=== PATIENT | female | born 1940 | race Hispanic/Latino ===

== ENCOUNTER → 2018-02-13 | Outpatient (CLI) | payer OTHER ==
--- NOTE | 2018-02-13 16:38 | Diagnostic Imaging Report ---
PROCEDURE: CT CHEST WITHOUT CONTRAST CT scan of the chest WITHOUT intravenous contrast, using standard protocol. TECHNIQUE: The chest was scanned utilizing a multidetector helical scanner from the apex to the level of the adrenal glands. No IV contrast was administered because of nodule protocol. Coronal and sagittal multiplanar reformations were obtained. DLP: 347.2 mGy-cm COMPARISON: Chest radiograph 08/20/2017 INDICATIONS: NODULE FINDINGS: Lines/tubes: None. Lungs and Airways: Upper lobe predominant consolidations in a peribronchovascular distribution. There are areas of varicoid bronchiectasis (series 3 image 32 in the left upper lobe). Additional scattered peripheral ground glass opacities are noted. Pleura: The pleural spaces are clear. Heart and mediastinum: The thyroid gland is normal. No significant mediastinal, hilar or axillary lymphadenopathy is seen. Numerous but subcentimeter mediastinal appearance, nonspecific. The heart and pericardium are within normal limits. Ascending aortic ectasia measuring 4 cm. Soft tissues: Normal. Abdomen: Mild intrahepatic and extrahepatic biliary ductal dilatation. The common bile duct measures 1.1 cm. Gallbladder is outside the scanned abdomen. No right upper quadrant surgical clips are noted on chest radiograph 08/20/2017. Prominent wolf hepatis and gastrohepatic lymph nodes measure up to 1.1 cm. A 0.6 cm nodule is noted anterior to the left hepatic lobe (series 2 image 87). Bones: Multilevel degenerative changes of the spine. IMPRESSION: 1. Bilateral consolidations as detailed above. Based on patient's history, findings may reflect rheumatoid arthritis associated interstitial lung disease with a pattern which includes nonspecific interstitial pneumonia and cryptogenic organizing pneumonia. 2. Numerous but predominantly subcentimeter lymph nodes in the chest and upper abdomen are nonspecific but may also be related to RA. Reactive lymphadenopathy or a lymphoproliferative process are also in the differential. 3. Mild intrahepatic and extrahepatic biliary ductal dilatation. Consider correlation with right upper quadrant ultrasound. Dictated by: Yon Olguin M.D. on 02/13/2018 at 16:38 Electronically approved by: Yon Olguin M.D. on 02/13/2018 at 16:38
== END ==
LOC: CT 13:34
PROVIDERS: ATTEND Internal Medicine Pulmonary Disease
DX: R91.8 Other nonspecific abnormal finding of lung field (principal)
CPT/HCPCS: 71250

== ENCOUNTER 2018-05-05 12:15 | Emergency (ER) | payer OTHER ==
[~2018-05-05] VITALS: Ht 157.5 cm; Wt 52.6 kg
--- OUTSIDE RECORDS SUMMARY | 2018-05-05 12:18 | XMS REPORT | Clinical Summary ---
Author Author [facility] Address Unknown Phone Unavailable Care Team Providers Care Copier And Printer Field Technician Name Role Phone Merlene Roberto MD PCP Allergies Active Allergy Reactions Severity Noted Date Comments Penicillins Rash Low 03/23/2018 Current Medications Prescription Sig. Disp. Refills Start End Date Status Date albuterol (ACCUNEB) 2.5 Take 2.5 mg by Active mg /3 mL (0.083 %) nebulization 3 (three) nebulizer solution times a day. diltiazem XR (DILT-XR) Take 240 mg by mouth Active 240 MG 24 hr capsule daily. DULoxetine (CYMBALTA) 60 Take 60 mg by mouth Active MG capsule daily. gabapentin (NEURONTIN) Take 300 mg by mouth 3 Active 300 mg capsule (three) times a day. levothyroxine (SYNTHROID, Take 75 mcg by mouth Active LEVOXYL) 75 mcg tablet every morning. lidocaine (LIDODERM) 5 % Place 1 patch on the skin Active daily. Remove & Discard patch within 12 hours or as directed by LISINOPRIL-HCTZ 20-12.5 1 tablet daily. Active MG COMBO DOSE LORAZepam (ATIVAN) 2 MG Take 2 mg by mouth every Active tablet 8 (eight) hours as needed for anxiety. metFORMIN (GLUCOPHAGE) Take 500 mg by mouth 2 Active 500 mg tablet (two) times a day with meals. lancets (MICROLET LANCET) Active misc mirtazapine (REMERON Take 30 mg by mouth Active TAMEKA-TAB) 30 MG nightly. disintegrating tablet simvastatin (ZOCOR) 10 MG Take 10 mg by mouth Active tablet nightly. oxyCODone (ROXICODONE) 10 Take 5 mg by mouth 2 Active MG tablet (two) times a day. diclofenac (VOLTAREN) 1 % Apply topically 4 (four) 03/30/20 Discontin gel times a day. 18 ued famotidine (PEPCID) 40 MG Take 40 mg by mouth 03/23/20 Discontin tablet daily. 18 ued HYDROcodone-acetaminophen Take 1 tablet by mouth 03/25/20 Discontin (NORCO) 10-325 mg per every 6 (six) hours as 18 ued tablet needed for moderate pain. meloxicam (MOBIC) 7.5 mg Take 7.5 mg by mouth 03/30/20 Discontin tablet daily. 18 ued methotrexate 2.5 MG Take 2.5 mg by mouth 03/30/20 Discontin tablet every 12 (twelve) hours 18 ued for 3 (three) doses only each week. metoclopramide (REGLAN) 5 Take 5 mg by mouth 4 03/23/20 Discontin MG tablet (four) times a day. 18 ued polyethylene glycol Take 17 g by mouth daily. 03/30/20 Discontin (MIRALAX) 17 gram packet 18 ued promethazine (PHENERGAN) Take 25 mg by mouth every 03/30/20 Discontin 25 MG tablet 6 (six) hours as needed 18 ued for nausea or vomiting. aspirin 325 MG tablet Take 325 mg by mouth as 03/30/20 Discontin needed (prn headaches). 18 ued bisacodyl (DULCOLAX) 5 mg Take 5 mg by mouth daily 03/30/20 Discontin EC tablet as needed for 18 ued constipation. lisinopril Take 1 tablet (20 mg 30 tablet 0 03/31/20 04/30/20 (PRINIVIL,ZESTRIL) 20 mg total) by mouth daily for 18 18 tablet 30 days. enoxaparin (LOVENOX) 30 Inject 0.3 mL (30 mg 18 mL 0 03/30/20 mg/0.3 mL syringe total) under the skin 18 18 every 12 (twelve) hours for 30 days. oxyCODone-acetaminophen Take 1 tablet by mouth 03/30/20 04/29/20 (PERCOCET) 10-325 mg per every 6 (six) hours as 18 18 tablet needed for severe pain for up to 30 days. Max Daily Amount: 4 tablets nicotine (NICODERM CQ) 14 Place 1 patch on the skin 30 patch 0 04/30/20 mg/24 hr daily for 30 days. 18 18 hydroCHLOROthiazide Take 1 capsule (12.5 mg 30 capsule 0 03/31/20 (MICROZIDE) 12.5 mg total) by mouth daily for 18 18 capsule 30 days. Active Problems Problem Noted Date Osteoarthritis of right knee 03/25/2018 Encounters Date Type Specialty Care Team Description 03/25/2018 Hospital General Surgery Caleb Olguin MD - Encounter 03/30/2018 03/25/2018 Procedure Pass General Surgery 03/25/2018 Surgery General Surgery Caleb Olguin MD ARTHROPLASTY, KNEE, TOTAL RIGHT 03/24/2018 Anesthesia General Surgery Raquel Espino MD Event 03/23/2018 Hospital Radiology Caleb Olguin MD Encounter 03/23/2018 Pre-Admit Pre-Admission Testing Caleb Olguin MD Preop testing (Primary Testing Dx) Appointment 02/16/2018 Pre-Admit Pre-Admission Testing Caleb Olguin MD Preop testing (Primary Testing Dx) Appointment 02/04/2018 Procedure Pass General Surgery 01/19/2018 Hospital Radiology Caleb Olguin MD Encounter 01/19/2018 Pre-Admit Pre-Admission Testing Claeb Olguin MD Preop testing (Primary Testing Dx) Appointment after 05/04/2017 Family History Medical History Relation Name Comments Diabetes Mother Cancer Sister Relation Name Status Comments Father Mother Sister Social History Tobacco Use Types Packs/Day Years Used Date Current Every Day Smoker Cigarettes 0.25 25 Smokeless Tobacco: Never Used Tobacco Cessation: Ready to Quit: No Comments: stopped smoking 5 days prior to surgery Alcohol Use Drinks/Week oz/Week Comments No Sex Assigned at Date Recorded Not on file Last Filed Vital Signs Vital Sign Reading Time Taken Blood Pressure 157/79 03/30/2018 11:55 AM CDT Pulse 102 03/30/2018 11:55 AM CDT Temperature 36.7 C (98.1 F) 03/30/2018 11:55 AM CDT Respiratory Rate 18 03/30/2018 11:55 AM CDT Oxygen Saturation 93% 03/30/2018 11:55 AM CDT Inhaled Oxygen - - Concentration Weight 58.9 kg (129 lb 14.4 oz) 03/25/2018 6:19 AM CDT Height 154.9 cm (5' 1") 03/25/2018 6:19 AM CDT Body Mass Index 24.54 03/25/2018 6:19 AM CDT Plan of Treatment Health Maintenance Due Date Last Done Comments SHINGRIX VACCINE (#1) 1991 ZOSTER VACCINE 2001 PNEUMOCOCCAL 2006 POLYSACCHARIDE VACCINE AGE 65 AND OVER PNEUMOCOCCAL-13 2006 INFLUENZA VACCINE 06/24/2018 08/24/2017, 08/24/2016 Implants Implanted Type Area Brand Strategist Device Expiration Model / Identifier Date Serial / Lot Tissue Matrix Placental Liquid Human Right: 12/09/2022 AM200 / Cryomatrix Size 2.0cc - Tissue Knee [id number] - [id number] Implants -143 / Implanted: Qty: 1 on 03/25/2018 by [id number] Caleb Olguin MD -143 Evolutionmp Femoral Cs/Cr Non-Por IPM Right: MICROPORT 04/29/2025 [id number] / Size 3 Primary Right - [id number] IMPLANT Knee ORTHOPEDICS / Implanted: Qty: 1 on 03/25/2018 by DEVICES [id number] Caleb Olguin MD Evolutionmp Tibial Keeled Nonpor IPM Right: MICROPORT 11/19/2025 [id number] / Size 4 Standard Right - [id number] IMPLANT Knee ORTHOPEDICS / Implanted: Qty: 1 on 03/25/2018 by DEVICES [id number] Caleb Olguin MD Evolution Mp Cs Insert Size 4 IPM Right: MICROPORT 06/16/2025 [id number] / Standard 10mm Right - [id number] IMPLANT Knee ORTHOPEDICS / Implanted: Qty: 1 on 03/25/2018 by DEVICES [id number] Caleb Olguin MD Patella Onlay 3peg 32mm Pe Advance Knee Joint Right: MICROPORT 2024 [id number] / - [id number] Implants Knee / Implanted: Qty: 1 on 03/25/2018 by [id number] Caleb Olguin MD Cement Bone Gm Hiviscocty 40gr Surgical Right: DEPUY 07/24/2019 [id number] Smartmix - [id number] Bone Knee ORTHO-KNEES 500 / Implanted: Qty: 2 on 03/25/2018 by Cement / Caleb Olguin MD [id number] Procedures Procedure Name Priority Date/Time Associated Diagnosis Comments CO AN PERIPHERAL BLOCK Routine 03/25/2018 POST-OP PAIN 11:29 AM CDT Procedure Note - Raquel Espino MD - 03/25/2018 11:29 AM CDT Peripheral Block Performed by: RAQUEL ESPINO Authorized by: RAQUEL ESPINO Patient Location: Pre-op Start Time: 03/25/2018 7:30 AM End Time: 03/25/2018 7:45 AM Reason for Block: at surgeon's request, post-op pain management Staff: Anesthesio logist: RAQUEL ESPINO Preprocedu re: patient identified , IV checked, site and side verified, risks and benefits discussed, procedure verified, surgical consent complete, patient position confirmed, monitors and equipment checked, pre-op evaluation complete and site marked Time Out Performed: 03/25/2018 11:29 AM Peripheral Nerve Block: Patient Position: Supine Prep: DuraPrep Monitoring : Blood pressure monitoring , continuous pulse oximetry, CO2 and heart rate Block Type: Femoral Laterality : Right Injection Technique: Single injection Procedures : ultrasound guided Ultrasound documentat ion: Not saved Local Infiltrati on (See MAR for details): Lidocaine Loss of Twitch: 0.4 mA Needle: Needle Type: SonoPlex Needle Gauge: 22 G Needle Length: 2 in Assessment : Injection Assessment : Visualized needle/loc al anesthetic surroundin g nerve, visualized pertinent vascular structures and nerves, needle tip visualized at all times during injection of medication , intermitte nt aspiration during local anesthetic administra tion and no symptoms of intraneura l/intraven ous injection Paresthesi a Pain: None Heart Rate Change: No Slow Fractionat ed Injection: No Block outcome: No apparent complicati ons Notes: Ropivacain e 0.5% 20 cc Lidocaine 1.5% with epi 20 cc CO AN ELECTIVE Routine 03/25/2018 ENDOTRACHEAL AIRWAY 8:18 AM CDT Procedure Note - Raquel Espino MD - 03/25/2018 8:18 AM CDT Airway Performed by: RAQUEL ESPINO Authorized by: RAQUEL ESPINO Location: PACU Urgency: Elective Difficult Airway: No Anesthesio logist: RAQUEL ESPINO Preoxygena kaitlynn with 100% O2: Yes C-spine Precaution s Maintained Throughout : Yes Mask Ventilatio n: Easy mask Final Airway Type: Endotrache al airway Final Endotrache al Airway: ETT Cuffed: Yes Technique Used: Direct laryngosco py Devices/Me thods Used in Placement: Intubatin g stylet Insertion Site: Oral Blade Type: Stanton Laryngosco pe Blade/Vide olaryngosc ope Blade Size: 2 ETT Size (mm): 6.5 Cuff at minimum occlusion pressure: Yes Measured from: Gums ETT to Gums (cm): 20 Placement Verified by: CO2 detection Laryngosc opic view: Grade I - full view of glottis Rapid Sequence Induction (RSI): No Modified RSI: No Number of Attempts at Approach: 2 Unable to pass 7.0 Ett switched to 6.5 without complicati ons. ARTHROPLASTY, KNEE, TOTAL 03/25/2018 RIGHT KNEE OSTEOARTHRITIS RIGHT 7:43 AM CDT Special Needs NEEDS MICROPORTD AVID WITH MICROPORT NOTIFIED OF CASE SCHEDULED FOR 03/25 AT 0715 after 05/04/2017 Results * POC glucose (03/30/2018 11:57 AM) Only the most recent of 22 results within the time period is included. Component Value Ref Range POC glucose 94 65 - 99 mg/dL Comment: Meter ID: [id number] Roving Can Tender: Arjun Alcaraz Specimen Performing Laboratory [facility] DEPARTMENT OF PATHOLOGY AND [facility] MEDICINE [address] [place] [address] [place] [id number] * Hemoglobin & hematocrit (03/29/2018 5:49 AM) Only the most recent of 4 results within the time period is included. Component Value Ref Range HGB 9.1 (L) 12.0 - 16.0 g/dL HCT 28.8 (L) 37.0 - 47.0 % Specimen Performing Laboratory Blood [facility] DEPARTMENT OF PATHOLOGY AND [facility] MEDICINE [address] [place] [address] [place] [address] * Transfuse RBC (03/26/2018 7:25 PM) Only the most recent of 2 results within the time period is included. * Prepare RBC, 2 Units (03/26/2018 9:11 AM) Component Value Ref Range Product name Red Blood Cells -1, Leukored Unit number [id number] Product code [id number] Dispense status Transfused Blood expiration date Blood type code 7300 Blood type B POSITIVE Product name Red Blood Cells -1, Leukored Unit number [id number] Product code [id number] Dispense status Transfused Blood expiration date 532087153116 Blood type code 7300 Blood type B POSITIVE Specimen Performing Laboratory [facility] DEPARTMENT OF PATHOLOGY AND GENOMIC MEDICINE [id number] [place] [address] [place] [address] * Type and screen (03/26/2018 9:11 AM) Only the most recent of 2 results within the time period is included. Component Value Ref Range ABO grouping B Rh type POS Antibody screen NEG Specimen Performing Laboratory Blood [facility] DEPARTMENT OF PATHOLOGY AND GENOMIC MEDICINE [id number] [place] [address] [place] [address] * XR Knee 1 Or 2 Vw Right (03/25/2018 2:28 PM) Specimen Performing Laboratory [facility] [address] [place] [address] Narrative EXAMINATION:XR KNEE 1 OR 2 VW RIGHT CLINICAL HISTORY:total knee arthoplasty COMPARISON:None. IMPRESSION: There is a newly placed right knee prosthesis with normal alignment and no fracture.Surgical drains are in place. [id number] Procedure Note Hm Interface, Radiology Results Incoming - 03/25/2018 2:45 PM CDT EXAMINATION: XR KNEE 1 OR 2 VW RIGHT CLINICAL HISTORY: total knee arthoplasty COMPARISON: None. IMPRESSION: There is a newly placed right knee prosthesis with normal alignment and no fracture. Surgical drains are in place. [facility]-[id number] * Surgical pathology request (03/25/2018 10:00 AM) Component Value Ref Range Surgical pathology report See link below for PDF Lab Report Result status This is Final Report to [id number] Specimen Performing Laboratory [facility] DEPARTMENT OF PATHOLOGY AND GENOMIC MEDICINE [address] [place] [address] [place] [address] * XR Chest 2 Vw (03/23/2018 3:16 PM) Only the most recent of 2 results within the time period is included. Specimen Performing Laboratory [facility] [address] [place] [address] Narrative EXAMINATION:XR CHEST 2 VW CLINICAL HISTORY:Z01.818 Encounter for other preprocedural examination, preop COMPARISON:None. IMPRESSION: Patchyinfiltrates throughout the lungs bilaterally are unchanged from prior Cardiomediastinal silhouette is unchanged from prior Small bilateral pleural effusions are Unchanged Bony structures are Unchanged from prior [id number] Procedure Note Hm Interface, Radiology Results Incoming - 03/23/2018 3:27 PM CDT EXAMINATION: XR CHEST 2 VW CLINICAL HISTORY: Z01.818 Encounter for other preprocedural examination, preop COMPARISON: None. IMPRESSION: Patchyinfiltrates throughout the lungs bilaterally are unchanged from prior Cardiomediastinal silhouette is unchanged from prior Small bilateral pleural effusions are Unchanged Bony structures are Unchanged from prior [facility]-[id number] * ECG 12 lead (03/23/2018 2:38 PM) Only the most recent of 2 results within the time period is included. Component Value Ref Range Ventricular rate 81 Atrial rate 81 CO interval 164 QRSD interval 84 QT interval 348 QTC interval 404 P axis 1 39 QRS axis 1 -14 T wave axis 98 EKG impression Normal sinus rhythm-Minimal voltage criteria for LVH, may be normal variant-Abnormal QRS-T angle, consider primary T wave abnormality-Abnormal ECG-In automated comparison with ECG of 19-JAN-2018 14:12,-No significant change was found- Specimen Performing Laboratory [facility] [place] [address] [place] [address] * Urinalysis screen and microscopy, with reflex to culture (03/23/2018 2:25 PM) Only the most recent of 3 results within the time period is included. Component Value Ref Range Specimen site Clean catch Color, UA Yellow Appearance, UA Clear Specific gravity, UA 1.009 1.001 - 1.035 pH, UA 7.0 5.0 - 8.5 Protein, UA 2+ (A) Negative Glucose, UA Negative Negative Ketones, UA Negative Negative Bilirubin, UA Negative Negative Blood, UA Negative Negative Nitrite, UA Negative Negative Urobilinogen, UA Negative <2.0 Leukocyte esterase, UA Trace (A) Negative Epithelial cells, UA Few /HPF WBC, UA 0-5 0 - 4 /HPF RBC, UA 0-5 0 - 5 /HPF Bacteria, UA None seen None seen Yeast, UA None seen Yeast with pseudohyphae, None seen UA Specimen Performing Laboratory Urine [facility] DEPARTMENT OF PATHOLOGY AND GENOMIC MEDICINE [address] [place] [address] * Smear review (03/23/2018 2:25 PM) Component Value Ref Range Platelet slide review Lee adequate Specimen Performing Laboratory [facility] DEPARTMENT OF PATHOLOGY AND GENOMIC MEDICINE [address] [place] [address] * Estimated GFR (03/23/2018 2:25 PM) Only the most recent of 2 results within the time period is included. Component Value Ref Range GFR Non Af Amer 81 mL/min/1.73 m2 GFR Af Amer >90 mL/min/1.73 m2 Comment: Chronic kidney disease: <60 mL/min/1.73m2 Kidney failure: <15 mL/min/1.73m2 The estimated GFR is calculated from the IDMS-traceable Modification of Diet in Renal Disease Equation. The accuracy of the calculation is poor when the creatinine is normal. Calculated values >90 mL/min/1.73m2 are not reported. This equation has not been validated in children (<18 years), women, the elderly (>70 years), or ethnic groups other than Caucasians and Americans. Specimen Performing Laboratory Plasma specimen [facility] DEPARTMENT OF PATHOLOGY AND [address] [place] [address] * Partial thromboplastin time, activated (03/23/2018 2:25 PM) Only the most recent of 2 results within the time period is included. Component Value Ref Range PTT 34.7 23.0 - 36.0 sec Comment: PTT therapeutic range for unfractionated heparin is 61.0-112.0 seconds which corresponds to Anti-Xa 0.3-0.7 U/ml. Specimen Performing Laboratory Blood [facility] DEPARTMENT OF PATHOLOGY AND [address] [place] [address] * Sedimentation rate (03/23/2018 2:25 PM) Only the most recent of 2 results within the time period is included. Component Value Ref Range Sedimentation rate 38 (H) 0 - 20 mm/hr Specimen Performing Laboratory Blood [facility] OF PATHOLOGY AND [address] [place] [address] * Prothrombin time with INR (03/23/2018 2:25 PM) Only the most recent of 2 results within the time period is included. Component Value Ref Range Prothrombin time 13.7 12.0 - 15.0 sec INR 1.0 Comment: The International Normalized Ratio (INR) is a therapeutic monitoring tool for patients who are stable on oral anticoagulant therapy. An INR of 2.0-3.0 is suggested for deep vein thrombosis/pulmonary embolism. Specimen Performing Laboratory Blood [facility] DEPARTMENT OF PATHOLOGY AND [address] [place] [id number] * Gram stain (03/23/2018 2:25 PM) Only the most recent of 2 results within the time period is included. Component Value Ref Range Gram stain result Occasional WBC's No organisms seen Comment: Specimen Information Specimen Source: Urine Specimen Site: Clean catch Specimen Performing Laboratory Urine [facility] DEPARTMENT OF PATHOLOGY AND GENOMIC MEDICINE [address] [place] [address] * CBC with platelet and differential (03/23/2018 2:25 PM) Only the most recent of 2 results within the time period is included. Component Value Ref Range WBC 8.09 4.50 - 11.00 k/uL RBC 4.12 (L) 4.20 - 5.50 m/uL HGB 9.2 (L) 12.0 - 16.0 g/dL HCT 31.1 (L) 37.0 - 47.0 % MCV 75.5 (L) 82.0 - 100.0 fL MCH 22.3 (L) 27.0 - 34.0 pg MCHC 29.6 (L) 31.0 - 37.0 g/dL RDW - SD 44.9 37.0 - 55.0 fL MPV 9.4 8.8 - 13.2 fL Platelet count 370 150 - 400 k/uL Nucleated RBC 0.00 /100 WBC Neutrophils 57.4 39.0 - 69.0 % Lymphocytes 17.4 (L) 25.0 - 45.0 % Monocytes 8.2 0.0 - 10.0 % Eosinophils 15.8 (H) 0.0 - 5.0 % Basophils 0.6 0.0 - 1.0 % Specimen Performing Laboratory Blood [facility] DEPARTMENT OF PATHOLOGY AND GENOMIC MEDICINE [address] [place] [address] [place] [id number] * Urine culture (03/23/2018 2:25 PM) Only the most recent of 3 results within the time period is included. Component Value Ref Range Urine culture isolate Mixed Gram positive kim 10-2 cfu/ml (A) Comment: Specimen Information Specimen Source: Urine Specimen Site: Clean catch Specimen Performing Laboratory Urine [facility] DEPARTMENT OF PATHOLOGY AND GENOMIC MEDICINE [address] [place] [address] * MRSA screen culture (03/23/2018 2:25 PM) Only the most recent of 2 results within the time period is included. Component Value Ref Range MRSA screen culture No Methicillin Resistant Staphylococcus aureus isolate isolated. Comment: Specimen Information Specimen Source: Nares Specimen Site: Not specified Specimen Performing Laboratory Nares - Not specified [facility] DEPARTMENT OF PATHOLOGY AND GENOMIC MEDICINE [address] [place] [address] * Basic metabolic panel (03/23/2018 2:25 PM) Only the most recent of 2 results within the time period is included. Component Value Ref Range Sodium 142 135 - 148 mEq/L Potassium 3.8 3.5 - 5.0 mEq/L Chloride 96 (L) 98 - 112 mEq/L CO2 33 (H) 24 - 31 mEq/L Anion gap 13 7 - 15 mEq/L Comment: Starting from February , anion gap calculation no longer incorporates potassium. Please note the change. BUN 10 8 - 23 mg/dL Creatinine 0.7 0.5 - 0.9 mg/dL Glucose 97 65 - 99 mg/dL Calcium 9.4 8.8 - 10.2 mg/dL Specimen Performing Laboratory Plasma specimen [facility] DEPARTMENT OF PATHOLOGY AND GENOMIC MEDICINE [address] [place] [address] after 05/04/2017 Insurance Payer Benefit Subscriber ID Type Phone Address Plan / Group [employer] TEX[employer] xxxxxxxxx [facility]
--- OUTSIDE RECORDS SUMMARY | 2018-05-05 12:18 | XMS REPORT ---
Author Author [facility] Address Unknown Phone Unavailable Care Team Providers Care Cab Supervisor Name Role Phone RAQUEL SIDDIQUI Unavailable Unavailable RALPH RONDON Unavailable Unavailable Problems This patient has no known problems. Allergies, Adverse Reactions, Alerts This patient has no known allergies or adverse reactions. Medications This patient has no known medications. Results Test Description Test Time Test Comments Text Results Atomic Results Result Comments CT CHEST WO [place] [address] Patient Name: BRAXTON CHOU MR #: [id number] : 1940 Age/Sex: 77/F Req # : [id number] [facility] Physician: Ordered by: RAQUEL SIDDIQUI MD Report #: [id number] Location: CT Room/Bed: Procedure: [id number] CT/CT CHEST WO Exam Date: 02/13/18 Exam Time: 1320 REPORT STATUS: Signed This report includes an Addendum and supersedes previous reports for this exam. PROCEDURE: CT CHEST WITHOUT CONTRAST CT scan of the chest WITHOUT intravenous contrast, using standard protocol. TECHNIQUE: The chest was scanned utilizing a multidetector helical scanner from the apex to the level of the adrenal glands. No IV contrast was administered because of nodule protocol. Coronal and sagittal multiplanar reformations were obtained. DLP: 347.2 mGy-cm COMPARISON : Chest radiograph 08/20/2017 INDICATIONS: NODULE FINDINGS: Lines/tubes: None. Lungs and Airways: Upper lobe predominant consolidations in a peribronchovascular distribution. There are areas of varicoid bronchiectasis (series 3 image 32 in the left upper lobe). Additional scattered peripheral ground glass opacities are noted. Pleura: The pleural spaces are clear. Heart and mediastinum: The thyroid gland is normal. No significant mediastinal, hilar or axillary lymphadenopathy is seen. Numerous but subcentimeter mediastinal appearance, nonspecific. The heart and pericardium are within normal limits. Ascending aortic ectasia measuring 4 cm. Soft tissues: Normal. Abdomen: Mild intrahepatic and extrahepatic biliary ductal dilatation. The common bile duct measures 1.1 cm. Gallbladder is outside the scanned abdomen. No right upper quadrant surgical clips are noted on chest radiograph 08/20/2017. Prominent wolf hepatis and gastrohepatic lymph nodes measure up to 1.1 cm. A 0.6 cm nodule is noted anterior to the left hepatic lobe (series 2 image 87). Bones: Multilevel degenerative changes of the spine. IMPRESSION: 1. Bilateral consolidations as detailed above. 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 2. Numerous but predominantly subcentimeter lymph nodes in the chest and upper abdomen are nonspecific but may also be related to RA. Reactive lymphadenopathy or a lymphoproliferative process are also in the differential. 3. Mild intrahepatic and extrahepatic biliary ductal dilatation. Consider correlation with right upper quadrant ultrasound. Dictated by: Yon Olguin M.D. on 02/13/2018 at 16:38 Electronically approved by: Yon Olguin M.D. on 02/13/2018 at 16:38 ADDENDUM: The outside CT chest performed on 06/16/2017 at [facility] MRI diagnostics are made available for comparison. 1. Bilateral consolidations and patchy mildly spiculated groundglass opacities as detailed above. 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 - Findings has worsened on CT chest when compared to 06/16/2017. These superimposed spiculated groundglass opacities suggest possible superimposed infection or cryptogenic organizing pneumonia. 2. Numerous but predominantly subcentimeter lymph nodes in the chest and upper abdomen are nonspecific but may also be related to RA. Reactive lymphadenopathy or a lymphoproliferative process are also in the differential. - Distributions of these lymph nodes and size are unchanged. 3. Mild intrahepatic and extrahepatic biliary ductal dilatation. Consider correlation with right upper quadrant ultrasound. - This is unchanged. Dictated by: Christine Bone M.D. on 03/05/2018 at 14: 49 Electronically approved by: Christine Bone M.D. on 03/05/2018 at 14:49 Dictated By: CHRISTINE BONE MD 144 COPY TO: RAQUEL SIDDIQUI MD CHEST 2 VIEWS [place] [address] Patient Name: BRAXTON CHOU MR #: [id number] : 1940 Age/Sex: 76/F Req # : [id number] Adm Physician: Ordered by: RALPH RONDON MD Report #: [id number] Location: ER Room/Bed: Procedure: [id number] DX/CHEST 2 VIEWS Exam Date: 08/20/17 Exam Time: 0950 REPORT STATUS: Signed PROCEDURE: X-RAY CHEST, TWO VIEWS COMPARISON: 02/15/2011. INDICATIONS: CONGESTION FINDINGS: Worsening patchy reticular opacities and consolidations in the upper lobes with pleural scar. No pleural effusion or pneumothorax. Stable cardiomediastinal contour with tortuosity and atherosclerotic calcification of the thoracic aorta. CONCLUSION: Worsening bilateral upper lobe patchy opacities with associated apical pleural scar. Findings may reflect multifocal pneumonia or interstitial lung disease. CT scan of the chest may be of benefit for further evaluation. Dictated by: Raquel Peng M.D. on 08/20/2017 at 10:16 Electronically approved by: Raquel Peng M.D. on at 10:16 Dictated By: RAQUEL PENG MD [id number] Transcribed By: SEDRICK on 08/20/17 1016 COPY TO: RALPH RONDON MD
[2018-05-05] MEDS ORDERED: HYDROCODONE/APAP 5MG-325MG TAB PO ONE (12:45)
[2018-05-05 12:55] LABS: BASOPHILS % 0.4 % (0.0-1.0); EOSINOPHILS # (AUTO) 0.3 (0.0-0.4); EOSINOPHILS % 3.3 % (0.0-6.0); HEMATOCRIT 36.5 % (34.2-44.1); HEMOGLOBIN 11.5 g/dL (12.0-16.0); LYMPHOCYTES # (AUTO) 1.2 (1.0-3.2); LYMPHOCYTES % 14.8 % (18.0-39.1); MEAN CORPUSCULAR HEMOGLOBIN 24.8 pg (28-32); MEAN CORPUSCULAR HGB CONC 31.5 g/dL (31-35); MEAN CORPUSCULAR VOLUME 78.7 fL (81-99); MONOCYTES # (AUTO) 0.7 (0.2-0.8); MONOCYTES % 9.2 % (4.4-11.3); NEUTROPHILS # (AUTO) 5.7 (2.1-6.9); NEUTROPHILS % 71.8 % (38.7-80.0); PLATELET COUNT 355 x10e3/uL (140-360); RED BLOOD COUNT 4.64 x10e6/uL (3.6-5.1); RED CELL DISTRIBUTION WIDTH 20.6 % (11.7-14.4)
[2018-05-05 13:25] LABS: ANION GAP 13.8 mmol/L (8-16); BLOOD UREA NITROGEN 12 mg/dL (7-26); BUN/CREATININE RATIO 16 (6-25); CALCIUM 9.7 mg/dL (8.4-10.2); CARBON DIOXIDE 29 mmol/L (22-29); CHLORIDE 93 mmol/L (98-107); CREATINE KINASE 33 IU/L (29-168); CREATININE, SERUM 0.77 mg/dL (0.57-1.11); EST GLOMERULAR FILTRATION RATE > 60 ML/MIN (60-); GLUCOSE 95 mg/dL (74-118); POTASSIUM 3.8 mmol/L (3.5-5.1); SODIUM 132 mmol/L (136-145)
--- NOTE | 2018-05-05 13:58 | Diagnostic Imaging Report ---
Exams: Head and cervical spine CTs without IV contrast History: Trauma, fall Comparison studies: None Technique: Axial images were obtained from the brain and cervical spine. Coronal and sagittal images reconstructed from the axial data. Intravenous contrast: None Findings: Head CT: Scalp: No abnormalities. Bones: No fractures, blastic or lytic lesions. Extra-axial spaces: No masses. No fluid collections. Brain sulci: Mildly prominent. Ventricles: Mild compensatory dilatation. No hydrocephalus. Parenchyma: No mass, acute hemorrhage or acute or chronic cortical vascular insults. A few subtle hypodensities in the supratentorial white matter are nonspecific but most compatible with chronic small vessel ischemic changes. Sellar/suprasellar region: No abnormalities. Craniocervical junction: The foramen magnum is patent. No Chiari one malformation. Cervical spine CT: Fractures: None. Soft tissues: No gross abnormalities. Atlantoaxial articulation: Intact. Alignment: Straightened curvature may be positional. No acute subluxations. Minimal anterolisthesis of C3 on C4 and C4 on C5 are most likely degenerative in etiology. Cervicomedullary junction: No abnormalities. The foramen magnum is patent. Vertebrae: No infection or neoplasm. Degenerative changes: Multilevel disc degeneration with mild loss of disc height from C2 to C5 and moderate loss of disc height at C5-C6 and at C6-C7. Disc osteophyte complexes at C3-C4, C5-C6 and C6-C7 result in mild canal stenosis. Varying degrees of moderate to severe multilevel facet arthrosis, worse/severe on the right at C4-C5. There is moderate widening of the right C2-C3 facet joint with mixed lytic and sclerotic changes at the facet joint, presumably related to synovitis. Moderate foraminal stenosis on the right at C3-C4 and at C4-C5, bilaterally at C5-C6 and on the left at C6-C7 due to uncovertebral and facet arthrosis. Included lung apices: Nonspecific bilateral lung densities with air bronchograms and bronchiectasis possibly. Tree-in-bud densities in the superior segment of the right upper lobe compatible with nonspecific bronchiolitis. Incidental findings: Scattered calcified atherosclerosis with calcified plaque in the aortic arch, carotid bulbs, carotid siphons and intradural vertebral arteries.. IMPRESSION: Head CT: 1. No acute abnormalities. 2. Mild generalized volume loss with mild chronic microvascular ischemic changes. Cervical spine CT: 1. No cervical spine fracture or subluxation. 2. Moderate multilevel degenerative changes as described. 3. Cannot adequately evaluate ligament, spinal cord and or vascular abnormalities on the basis of this examination. 4. Bilateral lung densities with bronchiectasis, possibly infectious. Changes related to TB could have this appearance. Recommend dedicated chest CT to further evaluate if not recently performed. Signed by: Dr. Pro Santana M.D. on 05/05/2018 1:55 PM
--- NOTE | 2018-05-05 14:00 | Diagnostic Imaging Report ---
PROCEDURE:X-RAY LEFT WRIST, COMPLETE COMPARISON:None. INDICATIONS:BRUISING, SWELLING LEFT WRIST, status post fall FINDINGS: Marked generalized osteopenia, which limits evaluation of the bony structures. No definite displaced fractures. 1-2 mm mildly radiopaque densities project in the soft tissues of the dorsal aspect of the wrist at the level of the lunate, only seen in the lateral view. Mild degenerative changes in the carpal rows. No lytic or blastic lesions. Moderate soft tissue swelling around the wrist, predominantly in the dorsal aspect. CONCLUSION: 1-2 mm, mildly radiopaque densities projecting in the soft tissues of the dorsal aspect of the wrist at the level of the lunate is only seen in one view. These may represent small avulsed fragments in the setting of trauma, versus foreign bodies or vascular calcifications. 2. No definite displaced fracture is identified, however, evaluation is limited by marked osteopenia. Correlate clinically for need for further imaging such as MRI. 3. Moderate soft tissue swelling around the wrist. Jaya Maravilla M.D. Dictated by: Jaya Maravilla M.D. on 05/05/2018 at 14:03 Electronically approved by: Jaya Maravilla M.D. on 05/05/2018 at 14:03
[2018-05-05 15:53] VITALS: BP 150/72
== END 2018-05-05 16:30 | disposition home or self-care (01) ==
LOC: ER 12:15
DX: S60.212A Contusion of left wrist, initial encounter (principal); W01.0XXA Fall on same level from slipping, tripping and stumbling without subsequent striking against object, initial encounter; Y93.01 Activity, walking, marching and hiking; Y92.009 Unspecified place in unspecified non-institutional (private) residence as the place of occurrence of the external cause; I10 Essential (primary) hypertension; E11.9 Type 2 diabetes mellitus without complications; D64.9 Anemia, unspecified; M19.90 Unspecified osteoarthritis, unspecified site; M81.0 Age-related osteoporosis without current pathological fracture
CPT/HCPCS: 36415; 70450; 72125; 80048; 82550; 82553; 84484; 85025; 93005; 99284

== ENCOUNTER 2018-07-07 19:27 | Observation (INO) | payer OTHER ==
[~2018-07-07] VITALS: Ht 157.5 cm; Wt 58.3 kg
--- NOTE | 2018-07-07 20:42 | Diagnostic Imaging Report ---
History:Fall Comparison studies: None Technique: Axial images were obtained from the skull base to the vertex. Coronal and sagittal images reconstructed from the axial data. Intravenous contrast: None Findings: Scalp/skull: No abnormalities. Extra-axial spaces: No masses. No fluid collections. Brain sulci: Mildly prominent. Ventricles: Mild compensatory dilatation. No hydrocephalus. Parenchyma: Subtle hypodensities in the supratentorial white matter are small vessel ischemic changes. No masses, hemorrhage, acute or chronic cortical vascular insults. Sellar/suprasellar region: No abnormalities. Craniocervical junction: Patent foramen magnum. No Chiari one malformation. Incidental findings: Atherosclerotic calcifications in the carotid siphons and intracranial vertebral arteries. Incidental 2 mm interhemispheric lipomas. Impression: No acute abnormalities. Chronic findings: 1. Mild generalized volume loss. 2. Mild supratentorial white matter small vessel ischemic changes. Signed by: Dr. Thomas Turner M.D. on 07/07/2018 8:38 PM
--- NOTE | 2018-07-07 20:46 | Diagnostic Imaging Report ---
History: Fall Comparison studies: None Technique: Axial images were obtained through the cervical region.. Coronal and sagittal images reconstructed from the axial data.. Intravenous contrast: None Findings: Fractures: None. Soft tissues: No gross abnormalities. Atlantoaxial articulation: Moderately degenerated. Alignment: Normal lordosis. No scoliosis. Cervicomedullary junction: No abnormalities. The foramen magnum is patent. Vertebrae: Bones diffusely demineralized. No infection or neoplasm. Degenerative changes: Moderately degenerated disks at C5-6 and C6-7. Moderately degenerated facets from C3 to C6 on the left, from C2 to C6 on the right. Mild spinal canal stenosis at C5-6 and C6-7 due to disc osteophyte complexes. Foraminal stenosis is mild right C3-3-4, moderate right at C4-5, bilaterally at C5-6 and on the left at C6-7 due to facet and uncovertebral arthrosis. IMPRESSION: 1. No acute abnormalities. 2. Cannot adequately evaluate for ligament, spinal cord and or vascular abnormalities. 3. Degenerative changes as described. 4. Incidental confluent consolidations in the partially visualized lung apices. Signed by: Dr. Thomas Turner M.D. on 07/07/2018 8:43 PM
--- NOTE | 2018-07-07 20:56 | Diagnostic Imaging Report ---
EXAM: XR CHEST 1 VIEW DATE: 07/07/2018 7:32 PM INDICATION: Fall COMPARISON: None FINDINGS: Lines and Tubes: None Heart and Mediastinum: Accentuated by low lung lungs. Lungs and Pleura: Moderate coarse airspace opacities scattered bilaterally, are dominantly upper and midlungs. Bones and Soft Tissues: No acute findings. IMPRESSION: 1. Scattered coarse airspace opacities bilaterally, with no comparisons. Multifocal pneumonia or edema could have this appearance. Radiographic follow-up recommended. Signed by: Dr. Arjun Keith MD on 07/07/2018 8:53 PM
--- NOTE | 2018-07-07 20:57 | Diagnostic Imaging Report ---
EXAM: LUMBAR 3 VIEW DATE: 07/07/2018 7:32 PM INDICATION: \S\FALL \S\[id number] \S\1948 COMPARISON: None FINDINGS: Underpenetration and osseous demineralization limits evaluation. Vertebral heights of lumbar spine grossly maintained. Mild endplate and mild to moderate facet degenerative changes present. Mild leftward curvature of the lumbar spine may be positional. IMPRESSION: Degenerative changes with no definite acute fracture. CT could be obtained if clinical concern remains. Signed by: Dr. Arjun Keith MD on 07/07/2018 8:54 PM
--- NOTE | 2018-07-07 20:58 | Diagnostic Imaging Report ---
EXAM: PELVIS AP 1-2 VIEWS DATE: 07/07/2018 7:32 PM INDICATION: \S\FALL \S\[id number] \S\1948 COMPARISON: None FINDINGS: No distinct fracture, subluxation, or avulsion injury identified. IMPRESSION: No definite acute fracture. Signed by: Dr. Arjun Keith MD on 07/07/2018 8:54 PM
--- NOTE | 2018-07-07 22:53 | Diagnostic Imaging Report ---
EXAM: CT Chest WITHOUT contrast 07/07/2018 9:27 PM INDICATION: Findings in chest x-ray suspicious for infection COMPARISON: Chest x-ray on 07/07/2018 TECHNIQUE: Chest was scanned utilizing a multidetector helical scanner from the lung apex through the level of the adrenal glands without administration of IV contrast. Absence of intravenous contrast decreases sensitivity for detection of lymphadenopathy and vascular pathology. Coronal and sagittal reformations were obtained. Routine protocol was performed. IV CONTRAST: None RADIATION DOSE: Total DLP: 423.1 mGy*cm Estimated effective dose: (DLP x 0.014 x size factor) mSv COMPLICATIONS: None FINDINGS: LINES/ TUBES: None. LUNGS AND AIRWAYS: Predominantly upper lung fibrosis, traction bronchiectasis and a few areas of scattered tree-in-bud opacities compatible with endobronchial spread of infection. There is also significant involvement of the left lower lobe. PLEURA: The pleural spaces are clear. HEART AND MEDIASTINUM: The thyroid gland is normal. Extensive mediastinal adenopathy. The heart is normal in size.. There is no pericardial effusion. There are mild atherosclerotic calcifications in the aorta and coronary arteries. UPPER ABDOMEN: Extensive intra and extrahepatic biliary ductal dilatation BONES: There are degenerative changes in the thoracic spine. SOFT TISSUES: Unremarkable. IMPRESSION: 1. Findings in the chest are compatible with chronic atypical infection with upper lobe predominance suggestive of mycobacterial infection. Isolation is recommended until diagnosis is confirmed 2. Differential diagnosis may include sarcoidosis. 3. Findings were discussed with Dr. Pettit on 07/07/2018 at 10:49 PM Signed by: Dr. Mane Lam M.D. on 07/07/2018 10:49 PM
[2018-07-07 23:57] LABS: BASOPHILS % 0.4 % (0.0-1.0); EOSINOPHILS # (AUTO) 0.3 (0.0-0.4); EOSINOPHILS % 3.3 % (0.0-6.0); HEMATOCRIT 38.3 % (34.2-44.1); HEMOGLOBIN 12.1 g/dL (12.0-16.0); LYMPHOCYTES # (AUTO) 1.1 (1.0-3.2); LYMPHOCYTES % 12.1 % (18.0-39.1); MEAN CORPUSCULAR HEMOGLOBIN 26.7 pg (28-32); MEAN CORPUSCULAR HGB CONC 31.6 g/dL (31-35); MEAN CORPUSCULAR VOLUME 84.4 fL (81-99); MONOCYTES # (AUTO) 0.6 (0.2-0.8); MONOCYTES % 6.8 % (4.4-11.3); NEUTROPHILS # (AUTO) 6.9 (2.1-6.9); NEUTROPHILS % 76.3 % (38.7-80.0); PLATELET COUNT 322 x10e3/uL (140-360); RED BLOOD COUNT 4.54 x10e6/uL (3.6-5.1); RED CELL DISTRIBUTION WIDTH 16.1 % (11.7-14.4)
[2018-07-08] VITALS (9 sets, daily range): BP systolic 88–166; BP diastolic 57–72
[2018-07-08 00:17] LABS: ALANINE AMINOTRANSFERASE 20 IU/L (0-55); ALBUMIN 3.8 g/dL (3.5-5.0); ALKALINE PHOSPHATASE 123 IU/L (40-150); ANION GAP 12.7 mmol/L (8-16); BLOOD UREA NITROGEN 12 mg/dL (7-26); BUN/CREATININE RATIO 17 (6-25); CALCIUM 9.9 mg/dL (8.4-10.2); CARBON DIOXIDE 30 mmol/L (22-29); CHLORIDE 96 mmol/L (98-107); CREATININE, SERUM 0.71 mg/dL (0.57-1.11); EST GLOMERULAR FILTRATION RATE > 60 ML/MIN (60-); GLUCOSE 89 mg/dL (74-118); POTASSIUM 3.7 mmol/L (3.5-5.1); SODIUM 135 mmol/L (136-145)
[2018-07-08] MEDS ORDERED: SODIUM CHLORIDE 0.9% 1000ML 1,000 ML IV SCH (00:24)
[2018-07-08] MEDS: CEFTRIAXONE SOD 1 GM VIAL IV SCH ×2 (00:30→22:31)
[2018-07-08] MEDS: ALBUTEROL SULF 0.083% NEB SOLN 3 ML NEB NEB SCH ×7 (00:30→23:20)
[2018-07-08] MEDS: AZITHROMYCIN 500MG/NS 250 ML 250 ML IV SCH ×2 (00:35→22:31)
[2018-07-08] MEDS ORDERED: IPRATROPIUM BROMIDE 0.02% 2.5 ML NEB NEB SCH (01:00)
[2018-07-08] MEDS ORDERED: LISINOPRIL-HCT1 EACH PO (01:07)
[2018-07-08] MEDS ORDERED: METFORMIN HCL500 MG PO (01:07)
[2018-07-08] MEDS ORDERED: MELOXICAM7.5 MG PO (01:07)
[2018-07-08] MEDS ORDERED: SIMVASTATIN10 MG PO (01:07)
[2018-07-08] MEDS ORDERED: ALCLOMETASONE D15 GM (01:07)
[2018-07-08] MEDS ORDERED: LEVOTHYROXINE75 MCG PO (01:07)
[2018-07-08] MEDS ORDERED: POLYETHYLENE G255 GM PO (01:07)
[2018-07-08] MEDS ORDERED: LORAZEPAM2 MG PO (01:07)
[2018-07-08] MEDS ORDERED: MIRTAZAPINE30 MG PO (01:07)
[2018-07-08] MEDS ORDERED: TRIAZOLAM0.25 MG PO (01:07)
[2018-07-08] MEDS ORDERED: MORPHINE SULFAT15 M1 PO (01:07)
[2018-07-08] MEDS ORDERED: ALBUTEROL2.5 MG/3 M IH (01:07)
[2018-07-08] MEDS ORDERED: DILT-XR240 MG PO (01:07)
[2018-07-08] MEDS ORDERED: GABAPENTIN300 MG PO (01:07)
[2018-07-08] MEDS ORDERED: HYDROCODON-ACE1 EAC9 PO (01:07)
[2018-07-08] MEDS ORDERED: CYMBALTA60 MG PO (01:07)
[2018-07-08] MEDS ORDERED: MIRTAZAPINE 15 MG TAB PO PRN (01:15)
[2018-07-08] MEDS: HYDROCODONE/APAP 10MG-325MG TAB PO PRN ×4 (02:01→22:56)
[2018-07-08] MEDS: LEVOTHYROXINE SODIUM 75 MCG TAB PO SCH (06:20)
[2018-07-08] MEDS ORDERED: DILTIAZEM HCL PO SCH (07:30)
[2018-07-08] MEDS: DILTIAZEM HCL 120 MG CAP CD PO SCH (08:35)
[2018-07-08] MEDS ORDERED: LORAZEPAM PO SCH (09:00)
[2018-07-08] MEDS ORDERED: HYDROCHLOROTHIAZIDE 25 MG TAB PO SCH (09:00)
[2018-07-08] MEDS: POLYETHYLENE GLYCOL 3350 17 GM PACK PO SCH (09:00)
[2018-07-08] MEDS ORDERED: SIMVASTATIN PO SCH (09:00)
[2018-07-08] MEDS: MELOXICAM 7.5 MG TAB PO SCH (09:01)
[2018-07-08] MEDS: GABAPENTIN 300 MG CAP PO SCH (09:02)
[2018-07-08] MEDS: MORPHINE SULFATE 15MG TAB CR PO SCH ×2 (09:02→16:43)
[2018-07-08] MEDS: LISINOPRIL 20 MG TAB PO SCH ×2 (09:02→16:55)
[2018-07-08] MEDS: IPRATROPIUM BROMIDE 0.02% 2.5 ML NEB NEB SCH ×5 (09:30→23:20)
[2018-07-08] MEDS ORDERED: ALPRAZOLAM 0.25 MG TAB PO PRN (09:30)
[2018-07-08] MEDS ORDERED: DEXTROSE 50% SYRINGE 50 ML IV PRN (09:30)
--- NOTE | 2018-07-08 09:39 | Consultation ---
DATE OF CONSULTATION: July 08, 2018 PULMONARY CONSULTATION This is a patient of Dr. Baker, Dr. Roberto and Dr. Lafleur. This charming, but unfortunate, 77-year-old woman with history of rheumatoid arthritis, history of multiple falls and dizziness, apparent vertigo, sensation of spinning. History of asthma, gastroesophageal reflux, pulmonary fibrosis. Hit her back and injured the left wrist. X-rays are pending. History of gastroesophageal reflux. History of lung biopsy in the past, negative for tumor or TB. History of sputum studies and QuantiFERON studies at [facility]. ALLERGIES: NO KNOWN ALLERGIES. Medications include albuterol, metformin, Cardizem, fluoxetine, Neurontin, Zocor, Vicodin, Levoxyl, lisinopril, hydrochlorothiazide, Ativan, meloxicam, and Remeron. She recently had her right knee replaced. She has had left knee replaced in the past. Hysterectomy, gallbladder surgery and appendectomy. She smoked a pack a week of cigarettes, quit. Housewife. Family history is positive for cancer. PHYSICAL EXAMINATION GENERAL: A frail, white female in no acute distress. Anxious to go home. VITALS: Temperature 96.8, blood pressure 166/71. HEENT: Head is normocephalic and atraumatic. Eyes: The extraocular movements are intact. LUNGS: Bilateral rhonchi and wheezes. HEART: Regular rhythm. ABDOMEN: Nontender. EXTREMITIES: Scars on knees well healed. Left wrist is in a splint. Will discuss with Dr. Baker. Radiology report noted. Will request sputum for AFB, possible atypical infection, though old studies were as I recall negative. QuantiFERON studies were negative in the recent past. Thank you for this kind referral. Job#: [id number]
[2018-07-08] MEDS: INSULIN LISPRO 100 UNIT/1 ML 3ML VIAL SQ SCH ×3 (11:30→19:54)
[2018-07-08] MEDS: BUDESONIDE/FORMOTEROL 160/4.5MCG INHALER INH SCH (19:10)
[2018-07-08] MEDS: DULOXETINE HCL 30 MG DELAYED RELEASE PO SCH (20:16)
[2018-07-08] MEDS: SIMVASTATIN 20 MG TAB PO SCH (20:16)
[2018-07-08] MEDS ORDERED: DULOXETINE HCL PO SCH (21:00)
[2018-07-08] MEDS: TRIAZOLAM 0.25 MG PO SCH (21:00)
[2018-07-09] VITALS (11 sets, daily range): BP systolic 112–152; BP diastolic 55–74
[2018-07-09] MEDS: IPRATROPIUM BROMIDE 0.02% 2.5 ML NEB NEB SCH ×6 (02:10→23:10)
[2018-07-09] MEDS: ALBUTEROL SULF 0.083% NEB SOLN 3 ML NEB NEB SCH ×6 (02:10→23:10)
[2018-07-09 05:00] LABS: BASOPHILS % 0.5 % (0.0-1.0); EOSINOPHILS # (AUTO) 0.5 (0.0-0.4); EOSINOPHILS % 7.6 % (0.0-6.0); HEMATOCRIT 30.9 % (34.2-44.1); HEMOGLOBIN 9.8 g/dL (12.0-16.0); LYMPHOCYTES # (AUTO) 1.3 (1.0-3.2); LYMPHOCYTES % 20.3 % (18.0-39.1); MEAN CORPUSCULAR HEMOGLOBIN 27.2 pg (28-32); MEAN CORPUSCULAR HGB CONC 31.7 g/dL (31-35); MEAN CORPUSCULAR VOLUME 85.8 fL (81-99); MONOCYTES # (AUTO) 0.7 (0.2-0.8); MONOCYTES % 11.1 % (4.4-11.3); NEUTROPHILS # (AUTO) 3.8 (2.1-6.9); PLATELET COUNT 227 x10e3/uL (140-360); RED CELL DISTRIBUTION WIDTH 16.3 % (11.7-14.4)
[2018-07-09 05:29] LABS: ALANINE AMINOTRANSFERASE 18 IU/L (0-55); ALBUMIN 3.2 g/dL (3.5-5.0); ALKALINE PHOSPHATASE 101 IU/L (40-150); ANION GAP 12.7 mmol/L (8-16); BLOOD UREA NITROGEN 15 mg/dL (7-26); BUN/CREATININE RATIO 22 (6-25); CALCIUM 9.1 mg/dL (8.4-10.2); CARBON DIOXIDE 30 mmol/L (22-29); CHLORIDE 102 mmol/L (98-107); CREATININE, SERUM 0.68 mg/dL (0.57-1.11); EST GLOMERULAR FILTRATION RATE > 60 ML/MIN (60-); GLUCOSE 83 mg/dL (74-118); POTASSIUM 3.7 mmol/L (3.5-5.1); SODIUM 141 mmol/L (136-145)
[2018-07-09] MEDS: LEVOTHYROXINE SODIUM 75 MCG TAB PO SCH (06:06)
[2018-07-09] MEDS: BUDESONIDE/FORMOTEROL 160/4.5MCG INHALER INH SCH ×2 (07:00→19:05)
[2018-07-09] MEDS: INSULIN LISPRO 100 UNIT/1 ML 3ML VIAL SQ SCH ×4 (07:30→20:53)
[2018-07-09] MEDS: DILTIAZEM HCL 120 MG CAP CD PO SCH (07:30)
[2018-07-09] MEDS ORDERED: MAGNESIUM HYDROXIDE 30 ML UDC PO PRN (08:45)
[2018-07-09] MEDS ORDERED: HYDRALAZINE HCL 20 MG/ML VIAL IV PRN (08:45)
[2018-07-09] MEDS: MORPHINE SULFATE 15MG TAB CR PO SCH ×2 (09:00→17:00)
[2018-07-09] MEDS: POLYETHYLENE GLYCOL 3350 17 GM PACK PO SCH (09:00)
--- NOTE | 2018-07-09 09:12 | History and Physical ---
CHIEF COMPLAINT: Shortness of breath, cough and atypical pneumonia. HISTORY: Patient is a 77-year-old female basically had a fall accidentally. The patient did not have any passing out. She apparently slipped due to a wet floor and fell on her face. Since then, the patient is also has increasing shortness of breath for the past few days. She came in with a imaging chest CT findings in the chest compatible with chronic atypical infection with upper lobe predominant suggestive of mycobacterial infection. The patient had a workup previously. Dr. Ennis had seen the patient. She is pending for repeat bronchoscopy. The patient is otherwise stable at this time. PAST MEDICAL HISTORY: Including COPD, pulmonary fibrosis, history of asthma, reflux, diabetes, type 2, depression, and anxiety disorder. PAST SURGICAL HISTORY: Hysterectomy, gallbladder surgery, appendectomy. SOCIAL HISTORY: Patient smokes a pack per week of cigarettes. She quit. She is a housewife. FAMILY HISTORY: Otherwise noncontributory. ALLERGIES: NO KNOWN ALLERGIES. HOME MEDICATIONS: List is reviewed now. PHYSICAL EXAMINATION VITAL SIGNS: Temperature is 98, blood pressure 129/60, pulse rate is 80, respirations 18. GENERAL: The patient is not in acute distress. She is awake. HEENT: Normocephalic. NECK: Supple grossly. PULMONARY: Bilateral coarses and expiratory wheezing. CARDIOVASCULAR: S1 and S2. Regular rate and rhythm. ABDOMEN: Soft. EXTREMITIES: No cyanosis or edema. NEUROLOGIC: There is no gross focal deficit. LABORATORY: WBC is 8.9, hemoglobin 12, hematocrit 38, and platelets is 322,000. Chemistry: Sodium 141, potassium 3.7, chloride 102, bicarb 30, BUN is 15, creatinine 0.6, glucose is 83. Blood culture has been negative. CT scan as mentioned. IMPRESSION 1. Atypical pneumonia most likely. 2. Acute exacerbation of chronic obstructive pulmonary disease. PLAN: Continue with current treatment. Will continue with azithromycin and Rocephin for now. The patient is scheduled for bronchoscopy today. Patient may go home today if stable after bronchoscopy. The patient does want to go home at this time. Will continue to monitor the patient closely. Job#: [id number] [place]
[2018-07-09] MEDS: MELOXICAM 7.5 MG TAB PO SCH (09:21)
[2018-07-09] MEDS: GABAPENTIN 300 MG CAP PO SCH (09:21)
[2018-07-09] MEDS: LISINOPRIL 20 MG TAB PO SCH ×2 (09:21→17:02)
[2018-07-09] MEDS: SENNOSIDES 8.6 MG TAB PO SCH ×2 (09:23→17:02)
[2018-07-09] MEDS ORDERED: LIDOCAINE HCL 2% 30 ML TUBE ONE (12:17)
[2018-07-09] MEDS ORDERED: OXYMETAZOLINE HCL 0.05% NAS 1 SPRAY BTL ONE (12:17)
[2018-07-09] MEDS ORDERED: LIDOCAINE HCL 4% 50 ML BTL ONE (12:17)
[2018-07-09] MEDS ORDERED: ACETYLCYSTEINE 200 MG/ML 4ML VIAL ONE (12:17)
[2018-07-09] MEDS ORDERED: EPINEPHRINE HCL INJ 1 MG/ML AMP ONE (12:17)
[2018-07-09] MEDS ORDERED: PROPOFOL IV EMULSION 10 MG/ML 20 ML VIAL ONE (13:30)
[2018-07-09] MEDS ORDERED: LIDOCAINE HCL 2% LOCAL INJ 5 ML SDV VIAL INJ ONE (13:30)
[2018-07-09] MEDS ORDERED: ONDANSETRON HCL INJ 2 MG/ML VIAL ONE (13:30)
[2018-07-09] MEDS ORDERED: SEVOFLURANE INHAL SOLN 250 ML PEN BTL ONE (13:30)
[2018-07-09] MEDS ORDERED: FENTANYL CITRATE/PF 100MCG/2 ML INJ ONE (14:19)
--- NOTE | 2018-07-09 14:21 | Operative Report ---
DATE OF PROCEDURE: Patient with bilateral pulmonary infiltrates and scarring suggestive bronchiectasis. Previous lung biopsy revealed inflammation. Cultures were negative. Procedure was performed to exclude occult endobronchial lesions and bacteriologic studies. Procedure was performed under MAC anesthesia. LMA was employed. No movable cords. Mild laryngitis. Moderately severe tracheal bronchitis. No obstructive lesions were seen. Washing and brushings were taken from the right upper lobe under fluoroscopic control. Patient tolerated the procedure well. MAC anesthesia provided by Dr. Day. Patient was taken to PACU in good condition. Chest x-ray is pending. Job#: [id number] VAS
[2018-07-09] MEDS: HYDROCODONE/APAP 10MG-325MG TAB PO PRN (17:02)
[2018-07-09] MEDS: SIMVASTATIN 20 MG TAB PO SCH (20:40)
[2018-07-09] MEDS: DULOXETINE HCL 30 MG DELAYED RELEASE PO SCH (20:40)
[2018-07-09] MEDS: TRIAZOLAM 0.25 MG PO SCH (20:41)
[2018-07-10] MEDS: AZITHROMYCIN 500MG/NS 250 ML 250 ML IV SCH (00:14)
[2018-07-10] MEDS: CEFTRIAXONE SOD 1 GM VIAL IV SCH (00:14)
[2018-07-10] MEDS: IPRATROPIUM BROMIDE 0.02% 2.5 ML NEB NEB SCH ×2 (02:05→07:30)
[2018-07-10] MEDS: ALBUTEROL SULF 0.083% NEB SOLN 3 ML NEB NEB SCH ×2 (02:05→07:30)
[2018-07-10 05:00] VITALS: BP 138/68
[2018-07-10] MEDS: LEVOTHYROXINE SODIUM 75 MCG TAB PO SCH (05:45)
[2018-07-10] MEDS: HYDROCODONE/APAP 10MG-325MG TAB PO PRN (05:48)
[2018-07-10] MEDS: BUDESONIDE/FORMOTEROL 160/4.5MCG INHALER INH SCH (07:30)
[2018-07-10] MEDS: INSULIN LISPRO 100 UNIT/1 ML 3ML VIAL SQ SCH (07:30)
[2018-07-10] MEDS: DILTIAZEM HCL 120 MG CAP CD PO SCH (07:50)
[2018-07-10 08:00] VITALS: BP 126/60
[2018-07-10] MEDS: MORPHINE SULFATE 15MG TAB CR PO SCH (08:20)
[2018-07-10] MEDS: GABAPENTIN 300 MG CAP PO SCH (08:20)
[2018-07-10] MEDS: MELOXICAM 7.5 MG TAB PO SCH (08:20)
[2018-07-10] MEDS: LISINOPRIL 20 MG TAB PO SCH (08:20)
[2018-07-10] MEDS: SENNOSIDES 8.6 MG TAB PO SCH (08:20)
[2018-07-10] MEDS: POLYETHYLENE GLYCOL 3350 17 GM PACK PO SCH (08:20)
[2018-07-10 09:30] VITALS: BP 126/60
--- NOTE | 2018-07-10 10:36 | Discharge Summary ---
PCP: Merlene Roberto MD STAPLING MACHINE OPERATOR: Dr. Pro Ennis FINAL DIAGNOSES 1. Acute bronchitis. 2. Status post bronchoscopy. No bronchial mass. 3. Baseline bronchiectasis chronically. SUMMARY: This 77-year-old female came in with coughing and shortness of breath. The patient had a fall, which brought the patient in, and a CT scan showed some abnormal findings in the lungs bilaterally, most likely pulmonary fibrosis and scarring; but because of concern for TB, the patient underwent bronchoscopy. No mass. There was acute bronchitis. Patient is a pack per week now but previously more so smoker. She is stable now. She is going to go home today. She is to continue with azithromycin 250 mg daily for 7 days, Tessalon Perles p.r.n. for cough, nebulizer for DuoNeb 1 neb q.4 h. as needed for shortness of breath. Discussed with the patient and her daughter. Resume home medication. Patient is stable and discharged home today. Job#: [id number]
[2018-07-10 11:15] VITALS: BP 111/67
[2018-07-10] MEDS ORDERED: AZITHROMYCIN250 MG PO (11:16)
[2018-07-10] MEDS ORDERED: TESSALON PERLE100 MG PO (11:17)
== END 2018-07-10 11:45 | disposition home or self-care (01) ==
LOC: ER 19:27 → ERHOLD 07-08 00:31 → IMCU 07-08 01:24
PROVIDERS: ADMIT Internal Medicine; ATTEND Internal Medicine
DX: J44.0 Chronic obstructive pulmonary disease with (acute) lower respiratory infection (principal); J15.9 Unspecified bacterial pneumonia; J44.1 Chronic obstructive pulmonary disease with (acute) exacerbation; S16.1XXA Strain of muscle, fascia and tendon at neck level, initial encounter; W01.0XXA Fall on same level from slipping, tripping and stumbling without subsequent striking against object, initial encounter; Y93.01 Activity, walking, marching and hiking; Y92.019 Unspecified place in single-family (private) house as the place of occurrence of the external cause; E11.9 Type 2 diabetes mellitus without complications; D64.9 Anemia, unspecified; M81.0 Age-related osteoporosis without current pathological fracture; F17.210 Nicotine dependence, cigarettes, uncomplicated; Z82.49 Family history of ischemic heart disease and other diseases of the circulatory system; Z83.3 Family history of diabetes mellitus; S33.5XXA Sprain of ligaments of lumbar spine, initial encounter; S00.83XA Contusion of other part of head, initial encounter; J84.10 Pulmonary fibrosis, unspecified; F41.9 Anxiety disorder, unspecified; E03.9 Hypothyroidism, unspecified; K21.9 Gastro-esophageal reflux disease without esophagitis; E78.5 Hyperlipidemia, unspecified; M06.9 Rheumatoid arthritis, unspecified; Z96.653 Presence of artificial knee joint, bilateral; Z80.9 Family history of malignant neoplasm, unspecified; J20.9 Acute bronchitis, unspecified
CPT/HCPCS: 31623; 36415 ×4; 70450; 71045; 71250; 72100; 72125; 72170; 76001; 80053 ×2; 82164; 82948 ×3; 85025 ×2; 87040; 87102; 87116; 87205; 87206 ×2; 87335; 88112; 88312; 94640 ×8; 99284; G0378 ×3; J0456 ×2; J0696 ×2; J2001; J2405; 88305; J0171

== ENCOUNTER → 2019-10-26 | Day surgery (SDC) | payer OTHER ==
[2019-10-25 16:24] LABS: BASOPHILS % 0.4 % (0.0-1.0); EOSINOPHILS # (AUTO) 0.4 (0.0-0.4); EOSINOPHILS % 5.6 % (0.0-6.0); HEMATOCRIT 39.5 % (34.2-44.1); HEMOGLOBIN 12.6 g/dL (12.0-16.0); LYMPHOCYTES # (AUTO) 0.9 (1.0-3.2); LYMPHOCYTES % 13.2 % (18.0-39.1); MEAN CORPUSCULAR HEMOGLOBIN 29.7 pg (28-32); MEAN CORPUSCULAR HGB CONC 31.9 g/dL (31-35); MEAN CORPUSCULAR VOLUME 93.2 fL (81-99); MONOCYTES # (AUTO) 0.7 (0.2-0.8); MONOCYTES % 9.6 % (4.4-11.3); NEUTROPHILS # (AUTO) 4.9 (2.1-6.9); NEUTROPHILS % 70.8 % (38.7-80.0); PLATELET COUNT 260 x10e3/uL (140-360); RED BLOOD COUNT 4.24 x10e6/uL (3.6-5.1); RED CELL DISTRIBUTION WIDTH 13.9 % (11.7-14.4)
[~2019-10-26] MED LIST: ALBUTEROL2.5 MG/3 M IH; ALCLOMETASONE D15 GM; AZITHROMYCIN250 MG PO; CYMBALTA60 MG PO; DILT-XR240 MG PO; GABAPENTIN300 MG PO; HYDROCODON-ACE1 EAC9 PO; LEVOTHYROXINE75 MCG PO; LISINOPRIL-HCT1 EACH PO; LORAZEPAM2 MG PO; MELOXICAM7.5 MG PO; METFORMIN HCL500 MG PO; MIRTAZAPINE30 MG PO; MORPHINE SULFAT15 M1 PO; PANTOPRAZOLE SO40 MG PO; POLYETHYLENE G255 GM PO; PROPOFOL IV EMULSION 10 MG/ML 20 ML VIAL ONE; SIMVASTATIN10 MG PO; TESSALON PERLE100 MG PO; TRIAZOLAM0.25 MG PO
[2019-10-26 15:40] VITALS: BP 161/86
== END | disposition home or self-care (01) ==
LOC: OR 11:24
PROVIDERS: ATTEND Internal Medicine Gastroenterology
DX: Z12.11 Encounter for screening for malignant neoplasm of colon (principal); D12.0 Benign neoplasm of cecum; D12.3 Benign neoplasm of transverse colon; D12.4 Benign neoplasm of descending colon; K29.50 Unspecified chronic gastritis without bleeding; K31.89 Other diseases of stomach and duodenum; K21.9 Gastro-esophageal reflux disease without esophagitis; K59.00 Constipation, unspecified; R63.4 Abnormal weight loss; K64.8 Other hemorrhoids; K44.9 Diaphragmatic hernia without obstruction or gangrene; E78.5 Hyperlipidemia, unspecified; M81.0 Age-related osteoporosis without current pathological fracture; I10 Essential (primary) hypertension; E11.9 Type 2 diabetes mellitus without complications; E03.9 Hypothyroidism, unspecified; G89.29 Other chronic pain; F41.9 Anxiety disorder, unspecified; F17.210 Nicotine dependence, cigarettes, uncomplicated; Z88.0 Allergy status to penicillin; Z88.8 Allergy status to other drugs, medicaments and biological substances; Z88.6 Allergy status to analgesic agent; Z01.810 Encounter for preprocedural cardiovascular examination; Z01.812 Encounter for preprocedural laboratory examination
CPT/HCPCS: 36415; 43239; 45380; 45384; 45385; 85025; 93005; J2704; 45378; 45381

== ENCOUNTER 2020-05-18 19:38 | Inpatient (IN) | payer MEDICARE, OTHER ==
[~2020-05-18] VITALS: Ht 157.5 cm; Wt 58.1 kg
[~2020-05-18 19:38] MED LIST changes: -PROPOFOL IV EMULSION 10 MG/ML 20 ML VIAL ONE
[2020-05-18] MEDS ORDERED: NALOXONE HCL INJ 0.4 MG/ML AMP ONE (20:05)
[2020-05-18] MEDS ORDERED: ACETAMINOPHEN 650 MG SUPP PR ONE (20:15)
[2020-05-18] MEDS ORDERED: CEFTRIAXONE SOD 1 GM/NS 50 ML 50 ML IV ONE (20:15)
[2020-05-18 20:16] LABS: BASOPHILS # (AUTO) 0.1 (0.0-0.1); BASOPHILS % 0.7 % (0.0-1.0); EOSINOPHILS # (AUTO) 0.3 (0.0-0.4); EOSINOPHILS % 2.5 % (0.0-6.0); HEMATOCRIT 39.6 % (34.2-44.1); LYMPHOCYTES # (AUTO) 1.4 (1.0-3.2); LYMPHOCYTES % 11.7 % (18.0-39.1); MEAN CORPUSCULAR HEMOGLOBIN 29.2 pg (28-32); MEAN CORPUSCULAR HGB CONC 30.3 g/dL (31-35); MEAN CORPUSCULAR VOLUME 96.4 fL (81-99); MONOCYTES % 8.3 % (4.4-11.3); NEUTROPHILS # (AUTO) 9.1 (2.1-6.9); NEUTROPHILS % 76.3 % (38.7-80.0); PLATELET COUNT 309 x10e3/uL (140-360); RED BLOOD COUNT 4.11 x10e6/uL (3.6-5.1); RED CELL DISTRIBUTION WIDTH 14.7 % (11.7-14.4)
[2020-05-18 20:25] LABS: INR 1.03; PROTHROMBIN TIME 14.1 seconds (11.9-14.5)
[2020-05-18 20:26] LABS: PARTIAL THROMBOPLASTIN TIME 33.5 seconds (23.8-35.5)
[2020-05-18 20:35] LABS: ALBUMIN 3.3 g/dL (3.5-5.0); ALBUMIN/GLOBULIN RATIO 0.8 (0.8-2.0); ANION GAP 14.1 mmol/L (8-16); CALCIUM 9.1 mg/dL (8.4-10.2); CREATININE, SERUM 1.4 mg/dL (0.57-1.11); POTASSIUM 4.1 mmol/L (3.5-5.1)
[2020-05-18] MEDS ORDERED: ACETAMINOPHEN 325 MG TAB PO ONE (20:45)
--- NOTE | 2020-05-18 20:53 | Emergency Department Note ---
History of Present Illnes History of Present Illness Chief Complaint: COVID PUI History of Present Illness This is a 79 year old female PRESENTS TO THE ER VIA EMS REPORTING AMS X1 DAY; PER EMS, PT HAS BEEN NOT ACTING NORMAL; PT RESPONSIVE TO PAINFUL STIMULI; PT FEBRILE DURING TRIAGE, TEMP 100.1; PER DAUGHTER, PT HAS NOT "BEEN ACTING NORMAL"; DAUGHTER DENIES PT BEING RECENTLY EXPOSED TO ANYONE SICK; PT IS ON MORPHINE PO AT HOME . Historian: Family Member, Veneer Layer/EMS Arrival Mode: [facility] Onset (how long ago): day(s) (1) Location: GENERALIZED Quality: WEAKNESS, AMS, NOT ACTING RIGHT Severity: moderate Onset quality: gradual Duration (how long): day(s) (1) Progression: worsening Chronicity: new Relieving factors: none Exacerbating factors: none Past Medical/Family History Physician Review I have reviewed the patient's past medical and family history. Any updates have been documented here. Past Medical History Recent Fever: Yes Clinical Suspicion of Infectio: No New/Unexplained Change in Ment: Yes Past Medical History: Hypertension, Diabetes, Anemia Other Medical History: OA Osteoporosis Past Surgical History: Cholecysctectomy, Appendectomy, Hysterectomy Other Surgery: RT KNEE Social History Unable to obtain PSH: Unable to obtain due to, altered mental status Other Last Tetanus: UTD Review of Systems ROS Narrative Unable to obtain ROS: Unable to obtain due to, altered mental status Physical Exam Related Data Allergies: Coded Allergies: Penicillins (Verified Allergy, Mild, Hives, 05/05/18) codeine (Verified Allergy, Mild, Hives, 05/05/18) diphenhydramine (Verified Allergy, Unknown, RASH, CAN'T BREATH, 10/25/19) Triage Vital Signs Vital Signs Date Time Temp Pulse Resp B/P (MAP) Pulse Ox O2 Delivery O2 Flow Rate FiO2 05/18/20 20:05 100.1 106 24 147/68 100 Vital signs reviewed: Yes Physical Exam CONSTITUTIONAL Constitutional: Present well-developed, Present well-nourished HENT HENT: Present normocephalic, Present atraumatic, Present oropharynx clear/moist, Present nose normal HENT L/R: Present left ext ear normal, Present right ext ear normal EYES Eyes: Reports PERRL, Reports conjunctivae normal NECK Neck: Present ROM normal PULMONARY Pulmonary: Present effort normal, Present rhonchi (THROUGHOUT) CARDIOVASCULAR Cardiovascular: Present regular rhythm, Present heart sounds normal, Present capillary refill normal, Present normal rate GASTROINTESTINAL Abdominal: Present soft, Present nontender, Present bowel sounds normal GENITOURINARY Genitourinary: Present exam deferred SKIN Skin: Present warm, Present dry MUSCULOSKELETAL Musculoskeletal: Present ROM normal NEUROLOGICAL Neurological: Present weakness (GENERALIZEZ), Present other (COFUSED, DISORIENTED, AWAKENS TO PAINFUL STIMLUI THEN FALLS BACK ASLEEP) PSYCHOLOGICAL Psychological: Present mood/affect normal, Present judgement normal Results Laboratory Result Diagram: 05/18/20195605/[id number] Laboratory Laboratory Tests Test 05/18/20 20:09 05/18/20 19:57 Ammonia 47 UG/DL (31-123) White Blood Count 11.86 x10e3/uL (4.8-10.8) Red Blood Count 4.11 x10e6/uL (3.6-5.1) Hemoglobin 12.0 g/dL (12.0-16.0) Hematocrit 39.6 % (34.2-44.1) Mean Corpuscular Volume 96.4 fL (81-99) Mean Corpuscular Hemoglobin 29.2 pg (28-32) Mean Corpuscular Hemoglobin Concent 30.3 g/dL (31-35) Red Cell Distribution Width 14.7 % (11.7-14.4) Platelet Count 309 x10e3/uL (140-360) Neutrophils (%) (Auto) 76.3 % (38.7-80.0) Lymphocytes (%) (Auto) 11.7 % (18.0-39.1) Monocytes (%) (Auto) 8.3 % (4.4-11.3) Eosinophils (%) (Auto) 2.5 % (0.0-6.0) Basophils (%) (Auto) 0.7 % (0.0-1.0) Neutrophils # (Auto) 9.1 (2.1-6.9) Lymphocytes # (Auto) 1.4 (1.0-3.2) Monocytes # (Auto) 1.0 (0.2-0.8) Eosinophils # (Auto) 0.3 (0.0-0.4) Basophils # (Auto) 0.1 (0.0-0.1) Absolute Immature Granulocyte (auto 0.06 x10e3/uL (0-0.1) Prothrombin Time 14.1 seconds (11.9-14.5) Prothromb Time International Ratio 1.03 Activated Partial Thromboplast Time 33.5 seconds (23.8-35.5) Sodium Level 140 mmol/L (136-145) Potassium Level 4.1 mmol/L (3.5-5.1) Chloride Level 99 mmol/L (98-107) Carbon Dioxide Level 31 mmol/L (22-29) Anion Gap 14.1 mmol/L (8-16) Blood Urea Nitrogen 36 mg/dL (7-26) Creatinine 1.40 mg/dL (0.57-1.11) Estimat Glomerular Filtration Rate 36 ML/MIN (60-) BUN/Creatinine Ratio 26 (6-25) Glucose Level 108 mg/dL (74-118) Lactic Acid Level 1.4 mmol/L (0.5-2.0) Calcium Level 9.1 mg/dL (8.4-10.2) Total Bilirubin 0.4 mg/dL (0.2-1.2) Aspartate Amino Transf (AST/SGOT) 21 IU/L (5-34) Alanine Aminotransferase (ALT/SGPT) 11 IU/L (0-55) Alkaline Phosphatase 123 IU/L (40-150) Creatine Kinase 127 IU/L (29-168) Creatine Kinase MB 2.00 ng/mL (0-5.0) Troponin I 0.131 ng/mL (0-0.300) Total Protein 7.3 g/dL (6.5-8.1) Albumin 3.3 g/dL (3.5-5.0) Globulin 4.0 g/dL (2.3-3.5) Albumin/Globulin Ratio 0.8 (0.8-2.0) Assessment & Plan Medical Decision Making MDM PT CONFUSED, FEBRILE, PT ON MORPHINE AT HOME, NARCAN 0.4 GIVEN ON ARRIVAL, PT BECAME ALERT BUT STILL CONFUSED CBC, CMP, EKG, CARDIAC ENZYNES, LACTIC ACID, CXR, COVID 19, CT BRAIN, UA, BLOOD CULTURE ORDERED TO EVAL FOR SEPSIS, INTRACRANIAL ABNORMALITY, MYOCARDIAL INFARCTION, UTI, PNEUMONIA, COVID 19, ELECTROLYTE ABNORMALITY ROCEPHIN 1 GRAM IV ORDERED TYLENOL 650 MG PO ORDERED Assessment & Plan Final Impression: (1) UTI (urinary tract infection) (2) Fever (3) Confusion Depart Disposition: ADMITTED Last Vital Signs Date Time Temp Pulse Resp B/P (MAP) Pulse Ox O2 Delivery O2 Flow Rate FiO2 05/18/20 20:05 100.1 106 24 147/68 100 Home Meds Reported Medications Pantoprazole Sodium* (PROTONIX) 40 Mg Tablet.dr, 40 MG PO DAILY, TAB 10/25/19 Mirtazapine (MIRTAZAPINE) 30 Mg Tablet, 30 MG PO HS PRN for INSOMNIA, #90 07/08/18 Hydrocodone Bit/Acetaminophen (HYDROCODON-ACETAMINOPHN 10-325) 1 Each Tablet, 1 TAB PO Q6HR PRN for PAIN, #120 07/08/18 Meloxicam (MELOXICAM) 7.5 Mg Tablet, 7.5 MG PO DAILY, #30 07/08/18 Gabapentin (GABAPENTIN) 300 Mg Capsule, 300 MG PO BID, #90 07/08/18 Diltiazem Hcl (DILT-XR) 240 Mg Cap.er.deg, 1 CAP PO ACB, #90 07/08/18 Simvastatin (SIMVASTATIN) 10 Mg Tablet, 1 TAB PO DAILY, #90 07/08/18 Morphine Sulfate (MORPHINE SULFATE ER) 15 Mg Tablet.er, 15 MG PO PRN, #60 07/08/18 Lisinopril/Hydrochlorothiazide (LISINOPRIL-HCTZ 20-12.5 MG TAB) 1 Each Tablet, 1 TAB PO BID, #180 07/08/18 Duloxetine Hcl (CYMBALTA) 60 Mg Capsule.dr, 60 MG PO HS, #30 07/08/18 Triazolam (TRIAZOLAM) 0.25 Mg Tablet, 0.25 MG PO HS, #30 07/08/18 Lorazepam (LORAZEPAM) 2 Mg Tablet, 2 MG PO TID, #90 07/08/18 Levothyroxine Sodium (LEVOTHYROXINE SODIUM) 75 Mcg Tablet, 75 MCG PO DAILY, #90 07/08/18 Medications in the ED Naloxone HCl 0.4 mg STK-MED ONCE .ROUTE ; Start 05/18/20 at 20:05; Stop 05/18/20 at 19:59; Status DC Acetaminophen 650 mg ONCE ONCE AK ; Start 05/18/20 at 20:15; Stop 6/25/20 at 20:16; Status DC Ceftriaxone Sodium 50 ml @ 100 mls/hr ONCE ONCE IV Last administered on 05/18/20at 20:35; Admin Dose 100 MLS/HR; Start 05/18/20 at 20:15; Stop 05/18/20 at 20:44; Status DC Acetaminophen 650 mg ONCE ONCE PO ; Start 05/18/20 at 20:45; Stop 05/18/20 at 20:46; Status UNV DARIO CHOWDARY MD May 18, 2020 20:53
[2020-05-18 21:03] LABS: CLARITY,URINE CLOUDY (CLEAR); COLOR,URINE YELLOW (YELLOW)
[2020-05-18 21:04] LABS: BILIRUBIN,URINE SMALL (NEGATIVE); KETONES,URINE NEGATIVE (NEGATIVE); LEUKOCYTE ESTERASE ,URINE 1+ (NEGATIVE); NITRITE,URINE NEGATIVE (NEGATIVE); PROTEIN,URINE DIPSTICK 2+ (NEGATIVE); URINE UROBILINOGEN 0.2 mg/dL (0.2 - 1)
[2020-05-18 21:09] LABS: AMPHETAMINES SCREEN,URINE NEGATIVE (NEGATIVE); BENZODIAZEPINES SCREEN,URINE NEGATIVE (NEGATIVE); PHENCYCLIDINE SCREEN,URINE NEGATIVE (NEGATIVE)
[2020-05-18 21:16] LABS: BACTERIA,URINE MANY /HPF; EPITHELIAL CELLS,URINE MODERATE /LPF
--- NOTE | 2020-05-18 21:27 | Diagnostic Imaging Report ---
EXAMINATION: Head CT without contrast. HISTORY:Altered mental status. COMPARISON:CT brain from 07/07/2018. TECHNIQUE: Multidetector axial images were obtained from the foramen magnum to the vertex without contrast. The images were reconstructed using brain and bone algorithms. Thin section brain images were reformatted into coronal and sagittal planes. Dose modulation, iterative reconstruction, and/or weight based adjustment of the mA/kV was utilized to reduce the radiation dose to as low as reasonably achievable. Intravenous contrast: None IMAGE QUALITY: Suboptimal evaluation due to motion-related streak artifacts, particularly at the level of skull base and posterior fossa structures. FINDINGS: Skull/scalp: No lytic or blastic. lesions. No surgical changes. Parenchyma: Nonspecific bilateral frontoparietal patchy white matter hypodensity are likely related to small vessel ischemic changes. No acute hemorrhage, mass or acute major vascular territorial infarct. Arteries: No density suggestive of thrombosis. Mild atherosclerotic calcification in bilateral carotid siphon. Dural sinuses: No abnormal density suggestive of thrombosis. Ventricles: No hydrocephalus or displacement. Extra-axial spaces: Unchanged incidental 2 mm anterior interhemispheric lipoma. Brain volume: Mild generalized cerebral volume loss. Craniocervical junction: No mass, Chiari malformation, or basilar invagination. Sella: No mass. Paranasal/mastoid sinuses: Imaged portions unremarkable. IMPRESSION: Suboptimal evaluation due to motion artifacts, despite the limitation no gross acute intracranial abnormality. No change since CT brain from 07/07/2018. Chronic findings: 1. Mild supratentorial white matter microvascular ischemic changes. 2. Mild generalized age-related cerebral volume loss. Signed by: Dr. Ines Peterson M.D. on 05/18/2020 9:24 PM
--- NOTE | 2020-05-18 21:54 | Diagnostic Imaging Report ---
EXAMINATION: CT scan of the chest without contrast. TECHNIQUE: Spiral CT images of the chest were performed from the lung apices to the level of the adrenal glands. No intravenous contrast was administered per physician's request. Coronal and sagittal reformatted images were obtained. COMPARISON: Chest without 07/07/2018 CLINICAL HISTORY:AMS, shortness of breath DISCUSSION: ABSENCE OF INTRAVENOUS CONTRAST DECREASES SENSITIVITY FOR DETECTION OF FOCAL LESIONS AND VASCULAR PATHOLOGY. LINES/TUBES: None. LUNGS AND AIRWAYS: Exam acquired during expiratory phase. Increased attenuation of the pulmonary parenchyma in both upper and lower lobes, likely secondary to scan acquired during expiratory phase. Bilateral upper lobe and superior segment of bilateral lower lobe wedge-shaped areas of consolidation with air bronchograms, traction bronchiectasis and increased reticular markings are again noted, consistent with fibrotic changes. Some of these areas are stable, some have increased in size and others have decreased in size since the prior exam. For example: * 2.0 x 2.5 cm focal consolidation in the left upper lobe previously measured 2.5 x 1.6 cm (series 3, image 24) * 3.9 x 2.6 cm focal consolidation in the right upper lobe previously measured 4.1 x 3.0 cm (series 3, image 27). * 3.0 x 2.2 cm consolidation in the superior segment of the right lower lobe (series 3, image 37) previously measured 2.5 x 2.2 cm. Bronchiectatic changes in bilateral upper lobes and in particular left lower lobe are relatively unchanged. No significant interval change in groundglass opacities along the left lower lobe bronchovascular bundle (series 3, image 75). Spiculated subpleural focal groundglass areas in the periphery of the right upper lobe and right lower lobe (for example series 3, images 35, 38 and 53) are relatively stable. No new pulmonary masses or nodules. The airways are clear, without endobronchial lesions. PLEURA: No pneumothorax or pleural effusions. HEART AND MEDIASTINUM: The thyroid gland is normal. Stable moderate cardiomegaly. Atherosclerotic calcification of the aortic valves, coronary arteries and thoracic aorta. Main pulmonary artery is enlarged, measuring 3.3 cm. LYMPH NODES: No mediastinal, or axillary adenopathy. Difficult to assess for hilar adenopathy given the lack of intravenous contrast. No significant interval change in multiple subcentimeter, nonspecific mediastinal lymph nodes, which are likely reactive. ABDOMEN: Limited unenhanced views of the upper abdomen show no abnormality within the visualized liver, spleen, pancreas, or kidneys. The adrenal glands are normal. Gallbladder is not visualized. Stable moderate to marked dilation of the CBD, likely reflecting postcholecystectomy status. BONES AND SOFT TISSUES: No aggressive lytic or suspicious focal sclerotic lesions. Generalized osteopenia. Marked degenerative discs throughout the thoracic and upper lumbar spine, with vacuum phenomenon and osteophytosis. IMPRESSION: 1. Scan is limited as it was acquired during expiratory phase. This likely explains the increase attenuation of the pulmonary parenchyma in both upper and lower lobes. 2. Bilateral upper and lower lobe fibrotic changes and traction bronchiectasis. Some focal areas of fibrosis are stable while others have slightly increased in size or decreased in size, as described. No new consolidation. No new pulmonary masses, within the limitations of the study. Findings may reflect sequela of atypical mycobacterial infection or interstitial lung disease. Signed by: Dr. Jaya Maravilla M.D. on 05/18/2020 9:50 PM
[2020-05-18] MEDS ORDERED: SODIUM CHLORIDE 0.9% 1000ML 1,000 ML ONE (22:42)
[2020-05-18] MEDS ORDERED: SODIUM CHLORIDE 0.9% 1000ML 1,000 ML IV ONE (22:45)
--- NOTE | 2020-05-18 22:56 | NUR ---
Patient states she never had anything to eat or drink all day, sandwich tray with beverages served. Dysphagia test was done prior to providing food & drink, pt passed test with no distress.
--- NOTE | 2020-05-19 01:10 | NUR ---
Patient lying comfortably on bed with warm blanket provided. VSS, no complaint made.
[2020-05-19] MEDS ORDERED: SODIUM CHLORIDE 0.9% 1000ML 1,000 ML IV ONE (02:30)
[2020-05-19] MEDS ORDERED: NALOXONE HCL INJ 0.4 MG/ML AMP IV PRN (02:45)
[2020-05-19] MEDS: SODIUM CHLORIDE 0.9% 1000ML 1,000 ML IV SCH ×2 (03:46→10:01)
[2020-05-19] MEDS ORDERED: DEXTROSE 50% SYRINGE 50 ML IV PRN (05:45)
[2020-05-19] MEDS ORDERED: ONDANSETRON HCL INJ 2MG/ML 2ML 2 MG/ML VIAL IV PRN (05:45)
[2020-05-19] MEDS ORDERED: CEFTRIAXONE SOD 1 GM/NS 50 ML 50 ML IV SCH ×3 (05:45→20:00)
--- NOTE | 2020-05-19 05:59 | NUR ---
Asleep audible snoring, VSS per [employer] inspector.
[2020-05-19] MEDS: INSULIN REGULAR, HUMAN 100 UNIT/1 ML 3ML VIAL SQ SCH ×2 (08:10→10:43)
--- NOTE | 2020-05-19 08:10 | NUR ---
NO FOOD TRAY HERE YET.
[2020-05-19 08:24] LABS: BASOPHILS % 0.5 % (0.0-1.0); EOSINOPHILS # (AUTO) 0.3 (0.0-0.4); HEMATOCRIT 37.6 % (34.2-44.1); HEMOGLOBIN 11.3 g/dL (12.0-16.0); LYMPHOCYTES # (AUTO) 0.9 (1.0-3.2); LYMPHOCYTES % 10.3 % (18.0-39.1); MEAN CORPUSCULAR HEMOGLOBIN 29.2 pg (28-32); MEAN CORPUSCULAR HGB CONC 30.1 g/dL (31-35); MEAN CORPUSCULAR VOLUME 97.2 fL (81-99); MONOCYTES # (AUTO) 0.7 (0.2-0.8); MONOCYTES % 7.9 % (4.4-11.3); NEUTROPHILS # (AUTO) 6.7 (2.1-6.9); NEUTROPHILS % 77.7 % (38.7-80.0); PLATELET COUNT 241 x10e3/uL (140-360); RED BLOOD COUNT 3.87 x10e6/uL (3.6-5.1); RED CELL DISTRIBUTION WIDTH 14.6 % (11.7-14.4)
[2020-05-19 08:26] LABS: ALBUMIN 2.6 g/dL (3.5-5.0); ALBUMIN/GLOBULIN RATIO 0.8 (0.8-2.0); ANION GAP 9.2 mmol/L (8-16); CALCIUM 7.9 mg/dL (8.4-10.2); CREATININE, SERUM 1.23 mg/dL (0.57-1.11); POTASSIUM 4.2 mmol/L (3.5-5.1)
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
--- NOTE | 2020-05-19 09:55 | NUR ---
md claros to see pt. order ativan po given per md order. pt again with o2 and pulse ox and bp cuff off. again replaced, re educated.
[2020-05-19] MEDS ORDERED: LORAZEPAM 1 MG TAB ONE (09:58)
--- NOTE | 2020-05-19 09:58 | NUR ---
rbvo order from dr claros for ativan 1 mg po x one.
[2020-05-19] MEDS ORDERED: NON-FORMULARY MEDICATION (Mirtazapine 30 MG) PO PRN (10:00)
--- NOTE | 2020-05-19 10:06 | NUR ---
pt at end of bed, o2 off, pulse ox off, bp off, states she is ready to go home. pt is aaox4. pt insist she is going home. notified chg of concern for pt respiratory states. chg is calling pt daughter to help co-ordinate care.
[2020-05-19] MEDS ORDERED: ALPRAZOLAM 0.25 MG TAB PO PRN (10:45)
[2020-05-19] MEDS ORDERED: AZITHROMYCIN 500MG/NS 250 ML 250 ML IV SCH (10:45)
[2020-05-19] MEDS ORDERED: HYDRALAZINE HCL 20 MG/ML VIAL IV PRN (10:45)
[2020-05-19] MEDS ORDERED: KETOROLAC TROMETHAMINE 30 MG/ML VIAL IV PRN (10:45)
[2020-05-19] MEDS ORDERED: LEVOTHYROXINE SODIUM 75 MCG TAB PO SCH (10:45)
--- NOTE | 2020-05-19 10:55 | NUR ---
PT REFUSING TO SIT IN ROOM
[2020-05-19] MEDS ORDERED: HYDROCHLOROTHIAZIDE 25 MG TAB PO SCH (11:00)
[2020-05-19] MEDS ORDERED: LISINOPRIL 20 MG TAB PO SCH (11:00)
--- NOTE | 2020-05-19 11:13 | Consultation ---
DATE OF CONSULTATION: Pulmonary Consultation. The patient of Dr. Roberto, Dr. Lafleur, Dr. Baker. HISTORY OF PRESENT ILLNESS: Charming, but unfortunate 79-year-old woman with a history of arthritis, taken in by daughter because of altered mental status. Last seen approximately two years ago. At that time, she had a bronchoscopy because of persistent bilateral infiltrates. Studies were negative for AFB and fungi and cancer. Her family history is positive for cancer. She has a history of multiple falls and dizziness, pulmonary fibrosis and gastroesophageal reflux. Smoked a pack a week of cigarettes in the past. Housewife. PAST SURGICAL HISTORY: She has had appendectomy, gallbladder surgery, hysterectomy, right knee replacement, and bronchoscopy. ALLERGIES: ACCORDING TO THE RECORDS, SHE IS ALLERGIC TO PENICILLIN, CODEINE, AND BENADRYL. REVIEW OF SYSTEMS: She came in with altered mental status, but improved after Narcan. HOME MEDICATIONS: Included: 1. Cardia. 2. Duloxetine. 3. Gabapentin. 4. Levoxyl. 5. Ativan. 6. Meloxicam. 7. Remeron. 8. Morphine. 9. Protonix. 10. Narcan. 11. Trazodone. 12. Zocor. 13. Protonix. PHYSICAL EXAMINATION: GENERAL: She white female, anxious, upset that she has not received her tranquilizer or her blood pressure medicine. VITAL SIGNS: Pulse 63, respirations 16, blood pressure 100/56. HEAD: Normocephalic and atraumatic. NECK: Trachea midline. LUNGS: Bilateral rales. HEART: Regular rhythm. ABDOMEN: Nontender. EXTREMITIES: Nonedematous. IMPRESSION: Pulmonary fibrosis, presumably related to collagen vascular disease, postinflammatory cannot be excluded. The patient is a somewhat poor historian. Coronavirus testing is pending. PLAN: Resume pain medicine with markedly-reduced doses. Resume antihypertensives at reduced doses and monitor carefully. Thank you for this kind referral. MD ROGER Figueroa/GIULIAL /[id number]
[2020-05-19] MEDS ORDERED: LORAZEPAM 1 MG PO SCH (15:00)
[2020-05-19] MEDS ORDERED: GABAPENTIN 100 MG CAP PO SCH (17:00)
--- NOTE | 2020-05-19 17:35 | History and Physical ---
PRIMARY CARE PHYSICIAN: Merlene Roberto MD CHIEF COMPLAINT: Fever, urinary tract infection, possible pneumonia, confusion, brought in by family. HISTORY OF PRESENT ILLNESS: The patient is a 79-year-old female with pulmonary fibrosis, brought in by family due to confusion, fever, and urinary tract infection. The patient is placed on Rocephin. She also has history of pulmonary fibrosis. Her CT scan of the chest, showed that she had bilateral upper lobe fibrotic changes and bronchiectasis and also some focal area of fibrosis noted as well. There was no gross consolidation, however. The patient also has a WBC elevated at 12,000. She has also had a serology test COVID-19 PCR, still pending. The patient is otherwise, stable. She is still little confused. Antibiotics initiated. PAST MEDICAL HISTORY: COPD, pulmonary fibrosis, asthma, reflux, diabetes type 2, major depression, anxiety disorder. PAST SURGICAL HISTORY: Hysterectomy, gallbladder surgery, appendectomy. SOCIAL HISTORY: The patient was a smoker, she quit. She does not use alcohol. She lives at home with her family. ALLERGIES: TO PENICILLIN, CODEINE, DIPHENHYDRAMINE. HOME MEDICATIONS: The patient is on diltiazem, duloxetine, gabapentin, Taylor, levothyroxine, lisinopril/HCTZ, lorazepam, meloxicam, Remeron, morphine sulfate, Protonix, simvastatin, and triazolam. PHYSICAL EXAMINATION: VITAL SIGNS: Temperature is 100.1, blood pressure 147/68, pulse rate is 106, and respiration 24. GENERAL: The patient is awake. She is confused. HEENT: Normocephalic and atraumatic. Anicteric. NECK: Supple grossly. PULMONARY: Diminished breath sounds bilaterally with bilateral courses. CARDIOVASCULAR: Regular rate and rhythm. ABDOMEN: Soft. EXTREMITIES: No cyanosis or edema. NEUROLOGIC: The patient move all extremities. There is no focal deficit, but the patient is confused. LABORATORY DATA: Sodium is 137, potassium 4.2, chloride 106, bicarb 28, BUN 31, creatinine 1.2, glucose is 79. COVID-19 pending. WBC is 11.9, hemoglobin 12, hematocrit 39.6, and platelets 309. Urinalysis; 2+ protein, 1+ leukocyte esterase, many bacteria, wbc's is 20. Toxicology; positive for opioids. Coagulation is normal. CT scan with pulmonary fibrosis from bronchiectasis and possible atypical pneumonia. IMPRESSION: 1. Altered mental status, it could be secondary to toxic encephalopathy from urinary tract infection and pneumonia. 2. Urinary tract infection. 3. Atypical pneumonia. 4. Fever, rule out COVID-19, pending results. 5. Multiple baseline problems. PLAN: 1. Rocephin 1 g q.12. 2. Azithromycin 500 mg IV daily. 3. Inhaler if needed. 4. Home medication resumed. Anxiety medication. 5. Consultation with Dr. Pro Ennis. 6. May need some steroids, pending on status. 7. We will continue to monitor the patient closely. We will check the COVID-19. MD DYLON Mcdonough/VANNESA /[id number]
[2020-05-19] MEDS ORDERED: DULOXETINE HCL 30 MG DELAYED RELEASE PO SCH (21:00)
[2020-05-19] MEDS ORDERED: MIRTAZAPINE 15 MG TAB PO SCH (21:00)
[2020-05-19] MEDS ORDERED: SIMVASTATIN 20 MG TAB PO SCH (21:00)
[2020-05-20] MEDS ORDERED: LEVOTHYROXINE SODIUM 75 MCG TAB PO SCH (06:00)
[2020-05-20] MEDS ORDERED: DILTIAZEM HCL ER 120 MG CAP PO SCH (07:30)
[2020-05-20] MEDS ORDERED: SIMVASTATIN PO SCH (09:00)
[2020-05-20] MEDS ORDERED: PANTOPRAZOLE SOD 40 MG TABEC PO SCH (09:00)
[2020-05-20] MEDS ORDERED: MELOXICAM 7.5 MG TAB PO SCH (09:00)
== END 2020-05-19 11:10 | disposition left against medical advice (07) | DRG 689 ==
LOC: ER 19:38 → ERHOLD 05-19 05:42
PROVIDERS: ADMIT Internal Medicine; ATTEND Internal Medicine
DX: N39.0 Urinary tract infection, site not specified (principal); J18.9 Pneumonia, unspecified organism; G92 Toxic encephalopathy; I10 Essential (primary) hypertension; E11.9 Type 2 diabetes mellitus without complications; D64.9 Anemia, unspecified; M19.90 Unspecified osteoarthritis, unspecified site; Z90.49 Acquired absence of other specified parts of digestive tract; Z88.5 Allergy status to narcotic agent; Z88.0 Allergy status to penicillin; Z88.8 Allergy status to other drugs, medicaments and biological substances; J84.10 Pulmonary fibrosis, unspecified; K21.9 Gastro-esophageal reflux disease without esophagitis; F41.9 Anxiety disorder, unspecified; F32.9 Major depressive disorder, single episode, unspecified; Z11.59 Encounter for screening for other viral diseases; Z87.891 Personal history of nicotine dependence
CPT/HCPCS: 36415; 70450; 71250; 80053; 80307; 81001; 82140; 82550; 82553; 83605; 84484; 85025; 85610; 85730; 86039; 86200; 86431; 87040; 87086; 87635; 99285; J0696; J2310; J7030

== ENCOUNTER → 2021-03-13 | Outpatient (CLI) | payer MEDICARE | LOC: RAD 15:19 | PROVIDERS: ATTEND Internal Medicine | DX: R07.81 Pleurodynia (principal) | CPT/HCPCS: 71101 ==

== ENCOUNTER 2021-10-08 21:57 | Emergency (ER) | payer MEDICARE ==
[~2021-10-08] VITALS: Ht 157.5 cm; Wt 58.1 kg
[2021-10-09] MEDS ORDERED: HYDROCODONE/APAP 5MG-325MG TAB PO ONE (00:45)
[2021-10-09] MEDS ORDERED: LIDOCAINE 4% PATCH TP ONE (02:19)
== END 2021-10-09 02:13 | disposition home or self-care (01) ==
LOC: ER 22:02
DX: S32.030A Wedge compression fracture of third lumbar vertebra, initial encounter for closed fracture (principal); S32.020A Wedge compression fracture of second lumbar vertebra, initial encounter for closed fracture; S22.009A Unspecified fracture of unspecified thoracic vertebra, initial encounter for closed fracture; S32.009A Unspecified fracture of unspecified lumbar vertebra, initial encounter for closed fracture; S00.83XA Contusion of other part of head, initial encounter; M25.561 Pain in right knee; W18.39XA Other fall on same level, initial encounter; I10 Essential (primary) hypertension; E11.9 Type 2 diabetes mellitus without complications
CPT/HCPCS: 70450; 72125; 72128; 72131; 99283

== ENCOUNTER 2021-10-30 07:32 | Emergency (ER) | payer MEDICARE, OTHER ==
[~2021-10-30] VITALS: Ht 154.9 cm; Wt 52.2 kg
[2021-10-30 09:22] LABS: BASOPHILS % 0.5 % (0.0-1.0); EOSINOPHILS # (AUTO) 0.2 (0.0-0.4); EOSINOPHILS % 2.6 % (0.0-6.0); HEMATOCRIT 40.2 % (34.2-44.1); HEMOGLOBIN 12.2 g/dL (12.0-16.0); LYMPHOCYTES # (AUTO) 0.6 (1.0-3.2); LYMPHOCYTES % 10.9 % (18.0-39.1); MEAN CORPUSCULAR HEMOGLOBIN 27.7 pg (28-32); MEAN CORPUSCULAR HGB CONC 30.3 g/dL (31-35); MEAN CORPUSCULAR VOLUME 91.4 fL (81-99); MONOCYTES # (AUTO) 0.5 (0.2-0.8); MONOCYTES % 8.7 % (4.4-11.3); NEUTROPHILS # (AUTO) 4.4 (2.1-6.9); NEUTROPHILS % 76.6 % (38.7-80.0); PLATELET COUNT 223 x10e3/uL (140-360); RED CELL DISTRIBUTION WIDTH 15.9 % (11.7-14.4)
[2021-10-30 09:41] LABS: INR 1.01; PARTIAL THROMBOPLASTIN TIME 31.1 seconds (23.8-35.5); PROTHROMBIN TIME 14.1 seconds (11.9-14.5)
[2021-10-30 09:47] LABS: ALBUMIN 3.4 g/dL (3.5-5.0); ALBUMIN/GLOBULIN RATIO 1.3 (0.8-2.0); CALCIUM 8.8 mg/dL (8.4-10.2); CREATININE, SERUM 0.82 mg/dL (0.57-1.11); MAGNESIUM 1.7 MG/DL (1.3-2.1)
[2021-10-30 09:52] LABS: CLARITY,URINE CLEAR (CLEAR); COLOR,URINE YELLOW (YELLOW); KETONES,URINE NEGATIVE (NEGATIVE); LEUKOCYTE ESTERASE ,URINE NEGATIVE (NEGATIVE); NITRITE,URINE NEGATIVE (NEGATIVE); PROTEIN,URINE DIPSTICK 2+ (NEGATIVE); URINE UROBILINOGEN 0.2 mg/dL (0.2 - 1)
[2021-10-30] MEDS ORDERED: POTASSIUM CHLORIDE 20 MEQ TAB CR PO STA (10:23)
[2021-10-30 10:24] LABS: BACTERIA,URINE FEW /HPF; EPITHELIAL CELLS,URINE FEW /LPF; RBC,URINE 0-5 /HPF (0-5); WBC,URINE (MAN) 0-5 /HPF (0-5)
[2021-10-30] MEDS ORDERED: FENTANYL CITRATE/PF 100MCG/2 ML INJ IV ONE (10:45)
[2021-10-30 15:44] VITALS: BP 168/79
== END 2021-10-30 15:30 | disposition home or self-care (01) ==
LOC: ER 07:45
DX: M25.551 Pain in right hip (principal); S72.111A Displaced fracture of greater trochanter of right femur, initial encounter for closed fracture; W01.0XXA Fall on same level from slipping, tripping and stumbling without subsequent striking against object, initial encounter; Y93.01 Activity, walking, marching and hiking; Y92.481 Parking lot as the place of occurrence of the external cause; I10 Essential (primary) hypertension; K21.9 Gastro-esophageal reflux disease without esophagitis; Z96.651 Presence of right artificial knee joint; Z20.822 Contact with and (suspected) exposure to COVID-19
CPT/HCPCS: 36415; 70450; 71045; 72125; 72192; 73700; 80053; 81001; 82550; 82553; 83735; 84484; 85025; 85610; 85730; 87086; 93005; 99284; J3010; U0002

== ENCOUNTER 2021-11-05 03:38 | Inpatient (IN) | payer MEDICARE, OTHER ==
[~2021-11-05] VITALS: Ht 154.9 cm; Wt 49.9 kg
[2021-11-05] MEDS ORDERED: Morphine 4mg Syringe 4 MG/ML INJ IM STA (03:50)
[2021-11-05] MEDS ORDERED: ONDANSETRON HCL INJ 2MG/ML 2ML 2 MG/ML VIAL IV STA (04:40)
[2021-11-05] MEDS ORDERED: KETOROLAC TROMETHAMINE 30 MG/ML VIAL IV STA (04:41)
[2021-11-05 04:56] LABS: CLARITY,URINE CLEAR (CLEAR); COLOR,URINE YELLOW (YELLOW)
[2021-11-05 04:57] LABS: KETONES,URINE TRACE (NEGATIVE); LEUKOCYTE ESTERASE ,URINE NEGATIVE (NEGATIVE); NITRITE,URINE NEGATIVE (NEGATIVE); PROTEIN,URINE DIPSTICK 2+ (NEGATIVE); URINE UROBILINOGEN 0.2 mg/dL (0.2 - 1)
[2021-11-05] MEDS ORDERED: ACETAMINOPHEN 325 MG TAB PO ONE (05:30)
[2021-11-05 05:56] LABS: BASOPHILS % 0.6 % (0.0-1.0); EOSINOPHILS # (AUTO) 0.3 (0.0-0.4); EOSINOPHILS % 4.1 % (0.0-6.0); HEMATOCRIT 34.6 % (34.2-44.1); HEMOGLOBIN 10.8 g/dL (12.0-16.0); LYMPHOCYTES # (AUTO) 0.6 (1.0-3.2); LYMPHOCYTES % 9.7 % (18.0-39.1); MEAN CORPUSCULAR HGB CONC 31.2 g/dL (31-35); MEAN CORPUSCULAR VOLUME 89.6 fL (81-99); MONOCYTES # (AUTO) 0.7 (0.2-0.8); MONOCYTES % 11.3 % (4.4-11.3); NEUTROPHILS # (AUTO) 4.5 (2.1-6.9); NEUTROPHILS % 73.2 % (38.7-80.0); PLATELET COUNT 232 x10e3/uL (140-360); RED BLOOD COUNT 3.86 x10e6/uL (3.6-5.1); RED CELL DISTRIBUTION WIDTH 16.2 % (11.7-14.4)
[2021-11-05 06:00] LABS: INR 1.04; PROTHROMBIN TIME 14.4 seconds (11.9-14.5)
[2021-11-05 06:01] LABS: PARTIAL THROMBOPLASTIN TIME 34.8 seconds (23.8-35.5)
[2021-11-05 06:06] LABS: BACTERIA,URINE RARE /HPF; EPITHELIAL CELLS,URINE RARE /LPF; WBC,URINE (MAN) 0-5 /HPF (0-5)
[2021-11-05 06:07] LABS: ANION GAP 15.4 mmol/L (8-16); CALCIUM 9.1 mg/dL (8.4-10.2); CREATININE, SERUM 0.82 mg/dL (0.57-1.11); POTASSIUM 3.4 mmol/L (3.5-5.1)
[2021-11-05] MEDS ORDERED: POTASSIUM CHLORIDE 20 MEQ TAB CR PO STA (06:18)
[2021-11-05] MEDS: CELECOXIB 100 MG CAP PO SCH ×2 (10:15→17:03)
[2021-11-05] MEDS: HYDROCODONE/APAP 10MG-325MG TAB PO PRN (11:45)
[2021-11-05 11:59] VITALS: BP 152/79
[2021-11-05 12:01] VITALS: BP 152/79
[2021-11-05 15:30] VITALS: BP 150/70
[2021-11-05] MEDS ORDERED: SENNA-S TABLET PO SCH (17:00)
[2021-11-05 19:43] VITALS: BP 153/69
[2021-11-05] MEDS: SENNA-S TABLET PO SCH (20:35)
[2021-11-05] MEDS: DULOXETINE HCL 30 MG DELAYED RELEASE PO SCH (20:35)
[2021-11-06] VITALS (9 sets, daily range): BP systolic 119–176; BP diastolic 68–86
[2021-11-06] MEDS: HYDROCODONE/APAP 10MG-325MG TAB PO PRN ×2 (05:23→11:18)
[2021-11-06 05:48] LABS: ANION GAP 11.1 mmol/L (8-16); CALCIUM 8.5 mg/dL (8.4-10.2); CREATININE, SERUM 0.76 mg/dL (0.57-1.11); POTASSIUM 4.1 mmol/L (3.5-5.1)
[2021-11-06] MEDS: LEVOTHYROXINE SODIUM 75 MCG TAB PO SCH (06:04)
[2021-11-06 06:51] LABS: THYROID STIMULATING HORMONE 0.894 uIU/mL (0.350-4.940)
[2021-11-06] MEDS ORDERED: DILTIAZEM HCL PO SCH (07:30)
[2021-11-06] MEDS: DILTIAZEM HCL ER 120 MG CAP PO SCH (08:15)
[2021-11-06] MEDS: CELECOXIB 100 MG CAP PO SCH ×2 (08:15→17:32)
[2021-11-06] MEDS: SENNA-S TABLET PO SCH ×2 (08:15→20:47)
[2021-11-06] MEDS: PANTOPRAZOLE SOD 40 MG TABEC PO SCH (08:15)
[2021-11-06] MEDS: ENOXAPARIN 30 MG/0.3 ML SYR SC SCH (17:32)
[2021-11-06] MEDS: DULOXETINE HCL 30 MG DELAYED RELEASE PO SCH (20:47)
[2021-11-07 04:06] VITALS: BP 125/76
[2021-11-07] MEDS: HYDROCODONE/APAP 10MG-325MG TAB PO PRN ×2 (04:25→12:13)
[2021-11-07 05:34] LABS: BASOPHILS % 0.7 % (0.0-1.0); EOSINOPHILS # (AUTO) 0.4 (0.0-0.4); EOSINOPHILS % 6.9 % (0.0-6.0); HEMATOCRIT 31.6 % (34.2-44.1); HEMOGLOBIN 9.8 g/dL (12.0-16.0); LYMPHOCYTES # (AUTO) 0.9 (1.0-3.2); LYMPHOCYTES % 16.7 % (18.0-39.1); MEAN CORPUSCULAR VOLUME 90.3 fL (81-99); MONOCYTES # (AUTO) 0.7 (0.2-0.8); MONOCYTES % 12.6 % (4.4-11.3); NEUTROPHILS # (AUTO) 3.5 (2.1-6.9); NEUTROPHILS % 62.4 % (38.7-80.0); PLATELET COUNT 225 x10e3/uL (140-360); RED CELL DISTRIBUTION WIDTH 16.1 % (11.7-14.4)
[2021-11-07 05:57] LABS: ANION GAP 12.9 mmol/L (8-16); CALCIUM 8.6 mg/dL (8.4-10.2); CREATININE, SERUM 0.81 mg/dL (0.57-1.11); POTASSIUM 3.9 mmol/L (3.5-5.1)
[2021-11-07] MEDS: LEVOTHYROXINE SODIUM 75 MCG TAB PO SCH (06:05)
[2021-11-07] MEDS: DILTIAZEM HCL ER 120 MG CAP PO SCH (08:10)
[2021-11-07] MEDS: PANTOPRAZOLE SOD 40 MG TABEC PO SCH (08:10)
[2021-11-07] MEDS: SENNA-S TABLET PO SCH (08:10)
[2021-11-07] MEDS: CELECOXIB 100 MG CAP PO SCH ×2 (08:11→17:42)
[2021-11-07 08:48] VITALS: BP 141/67
[2021-11-07 08:58] VITALS: BP 141/67
[2021-11-07 12:32] VITALS: BP 126/79
[2021-11-07 15:32] VITALS: BP 134/52
[2021-11-07] MEDS: ENOXAPARIN 30 MG/0.3 ML SYR SC SCH (17:42)
== END 2021-11-07 19:45 | DRG 183 ==
LOC: ER 03:41 → ERHOLD 05:44 → IMCU 10:50 → MED/SURG3 12:52
PROVIDERS: ADMIT Internal Medicine; ATTEND Internal Medicine
DX: S22.42XA Multiple fractures of ribs, left side, initial encounter for closed fracture (principal); S72.111A Displaced fracture of greater trochanter of right femur, initial encounter for closed fracture; W01.0XXA Fall on same level from slipping, tripping and stumbling without subsequent striking against object, initial encounter; Z91.81 History of falling; Y93.89 Activity, other specified; Y92.012 Bathroom of single-family (private) house as the place of occurrence of the external cause; I10 Essential (primary) hypertension; K21.9 Gastro-esophageal reflux disease without esophagitis; Z88.5 Allergy status to narcotic agent; Z88.0 Allergy status to penicillin; Z88.8 Allergy status to other drugs, medicaments and biological substances; M17.0 Bilateral primary osteoarthritis of knee; R53.81 Other malaise; Z20.822 Contact with and (suspected) exposure to COVID-19
CPT/HCPCS: 36415; 71250; 80048; 81001; 82607; 82746; 83540; 84443; 84466; 85025; 85610; 85730; 86850; 86900; 94799; 97139; 99285; J1650; J1885; J2270; J2405; U0002

== ENCOUNTER 2022-04-24 11:02 | Emergency (ER) | payer MEDICARE ==
[~2022-04-24] VITALS: Ht 154.9 cm; Wt 49.9 kg
[2022-04-24 11:48] LABS: CLARITY,URINE CLEAR (CLEAR); COLOR,URINE YELLOW (YELLOW); KETONES,URINE NEGATIVE (NEGATIVE); LEUKOCYTE ESTERASE ,URINE TRACE (NEGATIVE); NITRITE,URINE NEGATIVE (NEGATIVE); PROTEIN,URINE DIPSTICK >=300 (NEGATIVE); URINE UROBILINOGEN 0.2 mg/dL (0.2 - 1)
[2022-04-24 11:51] LABS: BACTERIA,URINE MODERATE /HPF; EPITHELIAL CELLS,URINE MODERATE /LPF; RBC,URINE 0-5 /HPF (0-5)
[2022-04-24] MEDS ORDERED: CEPHALEXIN500 MG PO (12:13)
[2022-04-24 13:02] VITALS: BP 145/80
== END 2022-04-24 13:00 | disposition home or self-care (01) ==
LOC: ER 11:05
DX: L29.8 Other pruritus (principal); N39.0 Urinary tract infection, site not specified; I10 Essential (primary) hypertension; K21.9 Gastro-esophageal reflux disease without esophagitis; E07.9 Disorder of thyroid, unspecified
CPT/HCPCS: 81001; 99283

== ENCOUNTER 2022-04-28 09:18 | Inpatient (IN) | payer MEDICARE, OTHER ==
[~2022-04-28] VITALS: Ht 154.9 cm; Wt 49.0 kg
[~2022-04-28 09:18] MED LIST changes: +CEPHALEXIN500 MG PO
[2022-04-28 09:59] LABS: BASOPHILS % 0.6 % (0.0-1.0); EOSINOPHILS # (AUTO) 0.3 (0.0-0.4); EOSINOPHILS % 4.9 % (0.0-6.0); HEMATOCRIT 38.8 % (34.2-44.1); HEMOGLOBIN 12.7 g/dL (12.0-16.0); LYMPHOCYTES # (AUTO) 1.1 (1.0-3.2); LYMPHOCYTES % 17.4 % (18.0-39.1); MEAN CORPUSCULAR HEMOGLOBIN 29.7 pg (28-32); MEAN CORPUSCULAR HGB CONC 32.7 g/dL (31-35); MEAN CORPUSCULAR VOLUME 90.7 fL (81-99); MONOCYTES # (AUTO) 0.7 (0.2-0.8); MONOCYTES % 11.8 % (4.4-11.3); NEUTROPHILS # (AUTO) 4.1 (2.1-6.9); NEUTROPHILS % 64.8 % (38.7-80.0); PLATELET COUNT 322 x10e3/uL (140-360); RED BLOOD COUNT 4.28 x10e6/uL (3.6-5.1); RED CELL DISTRIBUTION WIDTH 14.3 % (11.7-14.4)
[2022-04-28 10:02] LABS: CLARITY,URINE CLEAR (CLEAR); COLOR,URINE YELLOW (YELLOW); KETONES,URINE NEGATIVE (NEGATIVE); LEUKOCYTE ESTERASE ,URINE NEGATIVE (NEGATIVE); NITRITE,URINE NEGATIVE (NEGATIVE); PROTEIN,URINE DIPSTICK >=300 (NEGATIVE); URINE UROBILINOGEN 0.2 mg/dL (0.2 - 1)
[2022-04-28 10:14] LABS: INR 1.02; PARTIAL THROMBOPLASTIN TIME 30.8 seconds (23.8-35.5); PROTHROMBIN TIME 14.3 seconds (11.9-14.5)
[2022-04-28 10:20] LABS: ALANINE AMINOTRANSFERASE 7 IU/L (0-55); ALBUMIN 3.3 g/dL (3.5-5.0); ALBUMIN/GLOBULIN RATIO 0.9 (0.8-2.0); ALKALINE PHOSPHATASE 129 IU/L (40-150); ANION GAP 14.6 mmol/L (8-16); BLOOD UREA NITROGEN 9 mg/dL (7-26); BUN/CREATININE RATIO 13 (6-25); CALCIUM 9.6 mg/dL (8.4-10.2); CARBON DIOXIDE 31 mmol/L (22-29); CHLORIDE 101 mmol/L (98-107); CREATINE KINASE 14 IU/L (29-168); CREATININE, SERUM 0.69 mg/dL (0.57-1.11); GLUCOSE 100 mg/dL (74-118); MAGNESIUM 1.4 MG/DL (1.3-2.1); POTASSIUM 3.6 mmol/L (3.5-5.1); SODIUM 143 mmol/L (136-145)
[2022-04-28 10:26] LABS: BACTERIA,URINE FEW /HPF; EPITHELIAL CELLS,URINE MODERATE /LPF; RENAL EPITHELIAL CELLS,URINE FEW; TRANSITIONAL EPI CELLS,URINE MODERATE
[2022-04-28] MEDS: Morphine 2mg Syringe 2 MG/ML SYR IV PRN ×2 (12:58→18:35)
[2022-04-28] MEDS: SODIUM CHLORIDE 0.9% 1000ML 1,000 ML IV SCH (12:58)
[2022-04-28] MEDS: ONDANSETRON HCL INJ 2MG/ML 2ML 2 MG/ML VIAL IV PRN ×2 (12:58→18:43)
[2022-04-28 15:56] VITALS: BP 179/71
[2022-04-28] MEDS ORDERED: LORAZEPAM 1 MG TAB PO PRN (17:00)
[2022-04-28 17:06] VITALS: BP 179/71
[2022-04-28 19:11] LABS: CREATINE KINASE 15 IU/L (29-168)
[2022-04-28 20:18] VITALS: BP 189/90
[2022-04-28] MEDS ORDERED: MORPHINE SULFATE 15MG TAB CR PO SCH (22:30)
[2022-04-28] MEDS: LISINOPRIL 20 MG TAB PO SCH (22:50)
[2022-04-28] MEDS: HYDROCHLOROTHIAZIDE 25 MG TAB PO SCH (22:50)
[2022-04-28] MEDS: LORAZEPAM 1 MG TAB PO SCH (22:54)
[2022-04-28] MEDS: DULOXETINE HCL 30 MG DELAYED RELEASE PO SCH (22:59)
[2022-04-28] MEDS: CEPHALEXIN 500 MG CAP PO SCH (22:59)
[2022-04-28] MEDS ORDERED: GABAPENTIN 300 MG CAP PO SCH (23:00)
[2022-04-28] MEDS ORDERED: MORPHINE SULFATE 15MG TAB CR PO PRN (23:30)
[2022-04-28] MEDS: HYDROCODONE/APAP 10MG-325MG TAB PO PRN (23:51)
[2022-04-28] MEDS: MIRTAZAPINE 15 MG TAB PO PRN (23:52)
[2022-04-29 00:04] VITALS: BP 164/93
[2022-04-29] MEDS: SODIUM CHLORIDE 0.9% 1000ML 1,000 ML IV SCH (03:30)
[2022-04-29 04:55] LABS: BASOPHILS % 0.8 % (0.0-1.0); EOSINOPHILS # (AUTO) 0.4 (0.0-0.4); EOSINOPHILS % 7.7 % (0.0-6.0); HEMATOCRIT 39.1 % (34.2-44.1); HEMOGLOBIN 12.5 g/dL (12.0-16.0); LYMPHOCYTES % 20.1 % (18.0-39.1); MEAN CORPUSCULAR HEMOGLOBIN 29.1 pg (28-32); MEAN CORPUSCULAR VOLUME 91.1 fL (81-99); MONOCYTES # (AUTO) 0.6 (0.2-0.8); MONOCYTES % 11.4 % (4.4-11.3); NEUTROPHILS # (AUTO) 2.9 (2.1-6.9); NEUTROPHILS % 59.6 % (38.7-80.0); PLATELET COUNT 298 x10e3/uL (140-360); RED BLOOD COUNT 4.29 x10e6/uL (3.6-5.1); RED CELL DISTRIBUTION WIDTH 14.1 % (11.7-14.4)
[2022-04-29 05:25] LABS: ANION GAP 15.4 mmol/L (8-16); CALCIUM 8.6 mg/dL (8.4-10.2); CREATININE, SERUM 0.66 mg/dL (0.57-1.11); POTASSIUM 3.4 mmol/L (3.5-5.1)
[2022-04-29 05:40] LABS: CREATINE KINASE 10 IU/L (29-168)
[2022-04-29 05:55] VITALS: BP 189/68
[2022-04-29] MEDS: HYDRALAZINE HCL 25 MG TAB PO SCH ×5 (06:00→22:00)
[2022-04-29 07:54] VITALS: BP 153/83
[2022-04-29 09:12] VITALS: BP 153/83
[2022-04-29] MEDS: PANTOPRAZOLE SOD 40 MG TABEC PO SCH (09:27)
[2022-04-29] MEDS: LEVOTHYROXINE SODIUM 75 MCG TAB PO SCH (09:27)
[2022-04-29] MEDS: LORAZEPAM 1 MG TAB PO SCH ×3 (09:27→20:26)
[2022-04-29] MEDS: HYDROCODONE/APAP 10MG-325MG TAB PO PRN ×2 (09:28→20:27)
[2022-04-29] MEDS: DILTIAZEM HCL ER 120 MG CAP PO SCH (09:30)
[2022-04-29] MEDS: MELOXICAM 7.5 MG TAB PO SCH (09:31)
[2022-04-29] MEDS: LISINOPRIL 20 MG TAB PO SCH ×2 (09:31→16:01)
[2022-04-29] MEDS: CEPHALEXIN 500 MG CAP PO SCH ×2 (09:31→16:01)
[2022-04-29] MEDS: HYDROCHLOROTHIAZIDE 25 MG TAB PO SCH ×2 (09:31→16:01)
[2022-04-29] MEDS: SIMVASTATIN 20 MG TAB PO SCH (09:32)
[2022-04-29 11:34] VITALS: BP 136/80
[2022-04-29 14:56] LABS: CREATINE KINASE MB 0.7 ng/mL (0-5.0)
[2022-04-29 20:08] VITALS: BP 162/79
[2022-04-29] MEDS: DULOXETINE HCL 30 MG DELAYED RELEASE PO SCH (20:26)
[2022-04-29] MEDS: MIRTAZAPINE 15 MG TAB PO PRN (20:28)
[2022-04-29] MEDS ORDERED: TRIAZOLAM 0.25 MG PO SCH (21:00)
[2022-04-30] VITALS (7 sets, daily range): BP systolic 133–171; BP diastolic 58–88
[2022-04-30] MEDS: HYDRALAZINE HCL 25 MG TAB PO SCH ×3 (02:00→08:24)
[2022-04-30] MEDS: DILTIAZEM HCL ER 120 MG CAP PO SCH (08:22)
[2022-04-30] MEDS: LORAZEPAM 1 MG TAB PO SCH (08:22)
[2022-04-30] MEDS: PANTOPRAZOLE SOD 40 MG TABEC PO SCH (08:22)
[2022-04-30] MEDS: LEVOTHYROXINE SODIUM 75 MCG TAB PO SCH (08:22)
[2022-04-30] MEDS: CEPHALEXIN 500 MG CAP PO SCH ×2 (08:23→16:10)
[2022-04-30] MEDS: SIMVASTATIN 20 MG TAB PO SCH (08:23)
[2022-04-30] MEDS: HYDROCHLOROTHIAZIDE 25 MG TAB PO SCH (08:23)
[2022-04-30] MEDS: LISINOPRIL 20 MG TAB PO SCH ×2 (08:23→16:10)
[2022-04-30] MEDS: MELOXICAM 7.5 MG TAB PO SCH ×2 (08:23→16:10)
[2022-04-30] MEDS ORDERED: HYDRALAZINE HCL 25 MG TAB PO PRN (08:45)
[2022-04-30] MEDS ORDERED: NIFEDIPINE CR 30 MG TAB PO ONE (09:15)
[2022-04-30] MEDS: HYDROCODONE/APAP 10MG-325MG TAB PO PRN (13:11)
[2022-04-30] MEDS: LORAZEPAM 1 MG TAB PO PRN (18:30)
[2022-04-30] MEDS: DULOXETINE HCL 30 MG DELAYED RELEASE PO SCH (20:57)
[2022-04-30] MEDS: TRAZODONE HCL 50 MG TAB PO SCH (20:57)
[2022-04-30] MEDS: MIRTAZAPINE 15 MG TAB PO PRN (20:58)
[2022-05-01] VITALS (7 sets, daily range): BP systolic 102–151; BP diastolic 57–75
[2022-05-01] MEDS: LORAZEPAM 1 MG TAB PO PRN ×3 (03:08→17:03)
[2022-05-01] MEDS: HYDROCODONE/APAP 10MG-325MG TAB PO PRN ×3 (04:36→18:55)
[2022-05-01] MEDS: ONDANSETRON HCL 4 MG ORAL DISINTEGRATING TAB PO PRN (04:40)
[2022-05-01] MEDS: NIFEDIPINE CR 30 MG TAB PO SCH (05:55)
[2022-05-01 08:58] LABS: BASOPHILS % 0.2 % (0.0-1.0); EOSINOPHILS % 0.1 % (0.0-6.0); HEMATOCRIT 42.6 % (34.2-44.1); LYMPHOCYTES # (AUTO) 0.8 (1.0-3.2); LYMPHOCYTES % 6.2 % (18.0-39.1); MEAN CORPUSCULAR HEMOGLOBIN 29.5 pg (28-32); MEAN CORPUSCULAR HGB CONC 32.9 g/dL (31-35); MEAN CORPUSCULAR VOLUME 89.7 fL (81-99); MONOCYTES # (AUTO) 0.6 (0.2-0.8); NEUTROPHILS # (AUTO) 11.4 (2.1-6.9); PLATELET COUNT 431 x10e3/uL (140-360); RED BLOOD COUNT 4.75 x10e6/uL (3.6-5.1); RED CELL DISTRIBUTION WIDTH 14.5 % (11.7-14.4)
[2022-05-01 09:20] LABS: ANION GAP 18.1 mmol/L (8-16); CALCIUM 9.6 mg/dL (8.4-10.2); CREATININE, SERUM 1.22 mg/dL (0.57-1.11); POTASSIUM 4.1 mmol/L (3.5-5.1)
[2022-05-01] MEDS: LEVOTHYROXINE SODIUM 75 MCG TAB PO SCH (09:33)
[2022-05-01] MEDS: MELOXICAM 7.5 MG TAB PO SCH ×2 (09:33→17:02)
[2022-05-01] MEDS: PANTOPRAZOLE SOD 40 MG TABEC PO SCH (09:33)
[2022-05-01] MEDS: DILTIAZEM HCL ER 120 MG CAP PO SCH (09:34)
[2022-05-01] MEDS: CEPHALEXIN 500 MG CAP PO SCH ×2 (09:36→17:02)
[2022-05-01] MEDS: LISINOPRIL 20 MG TAB PO SCH ×2 (09:36→17:02)
[2022-05-01] MEDS: APIXAB 2.5 MG TABLET PO SCH ×2 (09:36→17:01)
[2022-05-01] MEDS: MIRTAZAPINE 15 MG TAB PO PRN (20:42)
[2022-05-01] MEDS: DULOXETINE HCL 30 MG DELAYED RELEASE PO SCH (20:42)
[2022-05-01] MEDS: SIMVASTATIN 20 MG TAB PO SCH (20:42)
[2022-05-01] MEDS: TRAZODONE HCL 50 MG TAB PO SCH (20:42)
[2022-05-02] VITALS (8 sets, daily range): BP systolic 121–142; BP diastolic 53–85
[2022-05-02] MEDS: NIFEDIPINE CR 30 MG TAB PO SCH (06:34)
[2022-05-02] MEDS: HYDROCODONE/APAP 10MG-325MG TAB PO PRN ×2 (06:34→15:06)
[2022-05-02 06:41] LABS: BASOPHILS % 0.2 % (0.0-1.0); EOSINOPHILS # (AUTO) 0.1 (0.0-0.4); EOSINOPHILS % 0.9 % (0.0-6.0); HEMATOCRIT 41.3 % (34.2-44.1); HEMOGLOBIN 13.6 g/dL (12.0-16.0); LYMPHOCYTES # (AUTO) 0.5 (1.0-3.2); LYMPHOCYTES % 4.3 % (18.0-39.1); MEAN CORPUSCULAR HEMOGLOBIN 29.6 pg (28-32); MEAN CORPUSCULAR HGB CONC 32.9 g/dL (31-35); MONOCYTES # (AUTO) 0.8 (0.2-0.8); MONOCYTES % 6.9 % (4.4-11.3); NEUTROPHILS # (AUTO) 10.4 (2.1-6.9); NEUTROPHILS % 87.4 % (38.7-80.0); PLATELET COUNT 417 x10e3/uL (140-360); RED BLOOD COUNT 4.59 x10e6/uL (3.6-5.1); RED CELL DISTRIBUTION WIDTH 14.6 % (11.7-14.4)
[2022-05-02 07:08] LABS: ANION GAP 18.6 mmol/L (8-16); CALCIUM 9.2 mg/dL (8.4-10.2); CREATININE, SERUM 1.33 mg/dL (0.57-1.11); POTASSIUM 3.6 mmol/L (3.5-5.1)
[2022-05-02] MEDS: ONDANSETRON HCL 4 MG ORAL DISINTEGRATING TAB PO PRN ×2 (07:22→12:25)
[2022-05-02] MEDS: PANTOPRAZOLE SOD 40 MG TABEC PO SCH (08:33)
[2022-05-02] MEDS: MELOXICAM 7.5 MG TAB PO SCH (08:33)
[2022-05-02] MEDS: LEVOTHYROXINE SODIUM 75 MCG TAB PO SCH (08:33)
[2022-05-02] MEDS: DILTIAZEM HCL ER 120 MG CAP PO SCH (08:34)
[2022-05-02] MEDS: CEPHALEXIN 500 MG CAP PO SCH ×2 (08:34→17:16)
[2022-05-02] MEDS: APIXAB 2.5 MG TABLET PO SCH ×2 (08:34→17:17)
[2022-05-02] MEDS: LISINOPRIL 20 MG TAB PO SCH (08:35)
[2022-05-02] MEDS: LORAZEPAM 1 MG TAB PO PRN ×2 (08:39→18:23)
[2022-05-02] MEDS ORDERED: LORAZEPAM 0.5 MG TAB PO PRN (10:15)
[2022-05-02] MEDS ORDERED: BISACODYL 10 MG SUPP PR PRN (10:15)
[2022-05-02] MEDS ORDERED: MIRTAZAPINE 15 MG TAB PO PRN (10:15)
[2022-05-02] MEDS ORDERED: BISACODYL 5 MG TAB EC PO PRN (10:15)
[2022-05-02] MEDS ORDERED: BISACODYL 5 MG TAB EC PO ONE (11:00)
[2022-05-02] MEDS ORDERED: SODIUM CHLORIDE 0.45% 1,000 ML IV ONE (11:00)
[2022-05-02] MEDS: METOPROLOL TARTRATE 50 MG TAB PO SCH (17:00)
[2022-05-02] MEDS: SENNA-S TABLET PO SCH (17:19)
[2022-05-02] MEDS: TRAZODONE HCL 50 MG TAB PO SCH (20:18)
[2022-05-02] MEDS: SIMVASTATIN 20 MG TAB PO SCH (20:18)
[2022-05-02] MEDS: DULOXETINE HCL 30 MG DELAYED RELEASE PO SCH (20:18)
[2022-05-03 01:29] VITALS: BP 110/50
[2022-05-03] MEDS: LORAZEPAM 1 MG TAB PO PRN (03:01)
[2022-05-03] MEDS: HYDROCODONE/APAP 10MG-325MG TAB PO PRN ×2 (05:00→13:54)
[2022-05-03 05:26] VITALS: BP 113/97
[2022-05-03 05:59] LABS: BASOPHILS % 0.2 % (0.0-1.0); HEMATOCRIT 40.4 % (34.2-44.1); HEMOGLOBIN 13.1 g/dL (12.0-16.0); LYMPHOCYTES # (AUTO) 0.4 (1.0-3.2); LYMPHOCYTES % 1.8 % (18.0-39.1); MEAN CORPUSCULAR HEMOGLOBIN 29.4 pg (28-32); MEAN CORPUSCULAR HGB CONC 32.4 g/dL (31-35); MEAN CORPUSCULAR VOLUME 90.6 fL (81-99); MONOCYTES # (AUTO) 1.1 (0.2-0.8); MONOCYTES % 4.8 % (4.4-11.3); NEUTROPHILS # (AUTO) 21.3 (2.1-6.9); NEUTROPHILS % 92.3 % (38.7-80.0); PLATELET COUNT 527 x10e3/uL (140-360); RED BLOOD COUNT 4.46 x10e6/uL (3.6-5.1); RED CELL DISTRIBUTION WIDTH 14.7 % (11.7-14.4)
[2022-05-03] MEDS: NIFEDIPINE CR 30 MG TAB PO SCH (06:00)
[2022-05-03 06:29] LABS: ANION GAP 24.9 mmol/L (8-16); CALCIUM 8.4 mg/dL (8.4-10.2); CREATININE, SERUM 2.25 mg/dL (0.57-1.11); POTASSIUM 3.9 mmol/L (3.5-5.1)
[2022-05-03] MEDS: LEVOTHYROXINE SODIUM 75 MCG TAB PO SCH (07:34)
[2022-05-03] MEDS: PANTOPRAZOLE SOD 40 MG TABEC PO SCH (07:34)
[2022-05-03 07:45] VITALS: BP 118/65
[2022-05-03] MEDS ORDERED: SODIUM BICARBONATE 8.4% 50 ML in SODIUM CHLORIDE 0.45% 1,000 ML IV SCH (08:00)
[2022-05-03 08:32] VITALS: BP 118/65
[2022-05-03] MEDS ORDERED: LORAZEPAM 1 MG TAB PO SCH ×2 (09:00→15:00)
[2022-05-03 09:39] LABS: BAND NEUTROPHILS % (MANUAL) 1 %; EOSINOPHILS % (MANUAL) 4 % (0-7); MONOCYTES % (MANUAL) 4 % (3.4-9.0); NEUTROPHILS % (MANUAL) 91 % (40-74)
[2022-05-03 09:40] LABS: PLATELET ESTIMATE ADEQUATE; PLATELET MORPHOLOGY COMMENT NORMAL; RBC MORPHOLOGY COMMENT NORMAL
[2022-05-03] MEDS ORDERED: SODIUM BICARBONATE 8.4% 75 ML in SODIUM CHLORIDE 0.45% 1,000 ML IV SCH (10:30)
[2022-05-03] MEDS: SENNA-S TABLET PO SCH ×2 (10:54→17:24)
[2022-05-03] MEDS: APIXAB 2.5 MG TABLET PO SCH ×2 (10:54→17:24)
[2022-05-03] MEDS: METOPROLOL TARTRATE 50 MG TAB PO SCH ×2 (10:54→17:24)
[2022-05-03 11:34] VITALS: BP 118/57
[2022-05-03] MEDS ORDERED: SODIUM BICARBONATE 8.4% INJ 50 ML SYR ONE (13:42)
[2022-05-03] MEDS ORDERED: CALCIUM CHLORIDE 10% 1.36 MEQ/ML 10ML SYR IV ONE (13:42)
[2022-05-03] MEDS ORDERED: SODIUM CHLORIDE FLUSH 10 ML SYR ONE (13:42)
[2022-05-03] MEDS ORDERED: EPINEPHRINE HCL SYRINGE ONE (13:42)
[2022-05-03 15:17] LABS: BASOPHILS # (AUTO) 0.1 (0.0-0.1); BASOPHILS % 0.4 % (0.0-1.0); HEMATOCRIT 42.6 % (34.2-44.1); HEMOGLOBIN 13.8 g/dL (12.0-16.0); LYMPHOCYTES # (AUTO) 0.9 (1.0-3.2); LYMPHOCYTES % 3.2 % (18.0-39.1); MEAN CORPUSCULAR HEMOGLOBIN 29.8 pg (28-32); MEAN CORPUSCULAR HGB CONC 32.4 g/dL (31-35); MONOCYTES # (AUTO) 1.5 (0.2-0.8); MONOCYTES % 5.4 % (4.4-11.3); NEUTROPHILS # (AUTO) 25.8 (2.1-6.9); NEUTROPHILS % 90.5 % (38.7-80.0); PLATELET COUNT 493 x10e3/uL (140-360); RED BLOOD COUNT 4.63 x10e6/uL (3.6-5.1)
[2022-05-03 15:21] VITALS: BP 100/54
[2022-05-03] MEDS ORDERED: VANCOMYCIN HCL 125 MG CAPSULE PO SCH (18:00)
[2022-05-03] MEDS ORDERED: DEXTROSE 50% SYRINGE 50 ML IV ONE (18:51)
[2022-05-03] MEDS ORDERED: NOREPINEPHRINE 8 MG/D5W 250 ML 250 ML ONE (19:18)
== END 2022-05-04 00:06 | disposition expired | DRG 535 ==
LOC: ER 09:41 → ERHOLD 12:22 → MED/SURG 14:43 → MED/SURG2 05-02 22:56 → ICU 05-03 19:00
PROVIDERS: ADMIT Internal Medicine; ATTEND Internal Medicine
PROC: 0BH17EZ Insertion of Endotracheal Airway into Trachea, Via Natural or Artificial Opening (ICD-10-PCS; principal; 2022-05-03)
PROC: 5A1935Z Respiratory Ventilation, Less than 24 Consecutive Hours (ICD-10-PCS; 2022-05-03)
PROC: 5A12012 Performance of Cardiac Output, Single, Manual (ICD-10-PCS; 2022-05-03)
PROC: 5A2204Z Restoration of Cardiac Rhythm, Single (ICD-10-PCS; 2022-05-03)
DX: S72.115A Nondisplaced fracture of greater trochanter of left femur, initial encounter for closed fracture (principal); S72.111A Displaced fracture of greater trochanter of right femur, initial encounter for closed fracture; N17.9 Acute kidney failure, unspecified; E87.2 Acidosis; E44.1 Mild protein-calorie malnutrition; I46.9 Cardiac arrest, cause unspecified; I10 Essential (primary) hypertension; T46.4X5A Adverse effect of angiotensin-converting-enzyme inhibitors, initial encounter; T39.395A Adverse effect of other nonsteroidal anti-inflammatory drugs [NSAID], initial encounter; F41.9 Anxiety disorder, unspecified; F32.A Depression, unspecified; W01.0XXA Fall on same level from slipping, tripping and stumbling without subsequent striking against object, initial encounter; R29.6 Repeated falls; Z68.20 Body mass index [BMI] 20.0-20.9, adult; K21.9 Gastro-esophageal reflux disease without esophagitis; M17.11 Unilateral primary osteoarthritis, right knee; G47.00 Insomnia, unspecified; E03.9 Hypothyroidism, unspecified; Z88.5 Allergy status to narcotic agent; Z88.8 Allergy status to other drugs, medicaments and biological substances; Z88.0 Allergy status to penicillin; Z96.651 Presence of right artificial knee joint; Z79.899 Other long term (current) drug therapy; Z91.09 Other allergy status, other than to drugs and biological substances; F41.0 Panic disorder [episodic paroxysmal anxiety]; R33.0 Drug induced retention of urine
CPT/HCPCS: 31500; 36415; 51700; 70450; 71045; 72125; 74176; 76770; 80048; 80053; 81001; 82550; 82553; 83735; 84484; 85025; 85610; 85730; 87086; 92950; 93005; 94799; 99251; 99285; J0171; J2270; J2405; J7030; J7799; Q0162